=== PATIENT | female | born 1935 | race Caucasian/White ===

== ENCOUNTER 2016-07-24 17:26 | Observation (INO) | payer OTHER ==
[~2016-07-24] VITALS: Ht 165.1 cm; Wt 102.5 kg
[~2016-07-24 17:26] MED LIST: APIX5TAB PO; DILT-8 PO; GLIP5TAB8 PO; LISI-586 PO; LORA0.5T PO; METF-324 PO; PRAV80 PO; SOTA80 PO
[2016-07-24 17:28] VITALS: BP 167/71; PULSE 51; RESP 14; TEMP 98.1; O2SAT 97
[2016-07-24 17:45] VITALS: BP 161/79; PULSE 55; RESP 16
--- NOTE | 2016-07-24 18:03 | PD ---
HPI Chief Complaint: Dizziness Time Seen by Provider: 17:37 Travel History International Travel<30 days: No Contact w/Intl Traveler<30days: No Traveled to known affect area: No History of Present Illness HPI This 80-year-old female is complaining of feeling dizzy since yesterday. She has a history of atrial flutter and hypertension. She has a history of Alzheimer's dementia. Dementia manifests itself primarily with poor short-term memory She does live alone. Her daughter comes and gives her medicine twice a day and also cooks for her. She is generally ambulatory. The daughter says that today she's had hold onto things and she appears quite unsteady on her feet. She denies any chest pain or shortness of breath. She is on Eliquis. She had an ablation in 2016 for atrial flutter. He has diabetes and is on insulin as well as pills. She reportedly had a stroke in her 30s without residual. PFSH Past Medical History Hx Anticoagulant Therapy: Yes Arthritis: Yes Cancer: Yes (UTERINE) Cardiovascular Problems: Yes Cerebrovascular Accident: Yes Diabetes: Yes Patient Takes Glucophage: No Glaucoma: Yes Hypertension: Yes Medical other: Yes (chronic back pain r/t old injury) Tetanus Vaccination: Unknown Influenza Vaccination: No ?: Not Menopausal: Yes Past Surgical History Cardiac Surgery: Yes (ablation) Cholecystectomy: Yes Gynecologic Surgery: Yes (breast reduction) Hysterectomy: Yes Social History Alcohol Use: Yes (seldom) Tobacco Use: No Substance Use: No Allergies-Medications (Allergen,Severity, Reaction): Coded Allergies: No Known Allergies (Unverified , 07/24/16) Reported Meds & Prescriptions Reported Meds & Active Scripts Active Reported Trulicity Inj (Dulaglutide Inj) Unknown Strength Pen Unknown Dose SQ Q7D Lantus Solostar Pen Inj (Insulin Glargine) 300 Unit/3 Ml Pen 4 Units SQ HS Vitamin D3 (Cholecalciferol) 5,000 Unit Cap 5,000 Units PO DAILY Vitamin B12 Tr (Cyanocobalamin) 1,000 Mcg Tab 1,000 Mcg SL HS Aspirin 81 Mg Tabdr 81 Mg PO DAILY Pravastatin 40 Mg Tab 40 Mg PO HS Donepezil 10 Mg Tab 10 Mg PO DAILY Sertraline (Sertraline HCl) 100 Mg Tab 100 Mg PO DAILY Magox (Magnesium Oxide) 400 Mg Tab 400 Mg PO DAILY Lisinopril-Hctz 20-12.5 Mg Tab 1 Tab PO BID Taztia Xt (Diltiazem ER 24 HR) 240 Mg Caper 240 Mg PO DAILY Metformin (Metformin HCl) 1,000 Mg Tab 1,000 Mg PO HS With a meal Glipizide 5 Mg Tab 5 Mg PO BIDAC Take 30 minutes before a meal Synthroid (Levothyroxine Sodium) 50 Mcg Tab 50 Mcg PO DAILY Sotalol (Sotalol HCl) 80 Mg Tab 80 Mg PO BID Eliquis (Apixaban) 5 Mg Tab 5 Mg PO BID Review of Systems General / Constitutional: No: Fever, Chills Eyes: No: Diploplia, Blurred Vision HENT: Positive: Vertigo, Lightheadedness, No: Headaches Cardiovascular: No: Chest Pain or Discomfort, Palpitations, Edema Respiratory: No: Cough, Shortness of Breath Gastrointestinal: No: Vomiting, Diarrhea Genitourinary: No: Urgency, Frequency Musculoskeletal: No: Myalgias, Arthralgias Skin: No Rash, No Itching Neurologic: Positive: Weakness, Dizziness, No: Syncope, Focal Abnormalities Psychiatric: No: Anxiety Endocrine: No: Cold Intolerance Hematologic/Lymphatic: No: Easy Bruising Physical Exam Narrative GENERAL: Well-developed female SKIN: Focused skin assessment warm/dry. HEAD: Atraumatic. Normocephalic. EYES: Pupils equal and round. No scleral icterus. No injection or drainage. No nystagmus. Extraocular movements full ENT: No nasal bleeding or discharge. Mucous membranes pink and moist. NECK: Trachea midline. No JVD. CARDIOVASCULAR: Regular rate and rhythm. Rate is 50 No murmur appreciated. RESPIRATORY: No accessory muscle use. Clear to auscultation. Breath sounds equal bilaterally. GASTROINTESTINAL: Abdomen soft, non-tender, nondistended. Hepatic and splenic margins not palpable. MUSCULOSKELETAL: No obvious deformities. No clubbing. No cyanosis. No edema. NEUROLOGICAL: Awake and alert. No obvious cranial nerve deficits. Motor grossly within normal limits. Normal speech. We did stand the patient been tested her gait. She uses small steps to hold onto her walker. She normally walks with a cane PSYCHIATRIC: Appropriate mood and affect; insight and judgment normal. Data Data Last Documented VS Vital Signs Date Time Temp Pulse Resp B/P Pulse Ox O2 Delivery O2 Flow Rate FiO2 07/24/16 17:47 55 16 97 Room Air 07/24/16 17:45 161/79 07/24/16 17:28 98.1 Orders Electrocardiogram (07/24/16 18:00) Complete Blood Count With Diff (07/24/16 18:00) Troponin I (07/24/16 18:00) B-Type Natriuretic Peptide (07/24/16 18:00) Prothrombin Time / Inr (Pt) (07/24/16 18:00) Act Partial Throm Time (Ptt) (07/24/16 18:00) Urinalysis - C+S If Indicated (07/24/16 18:00) Magnesium (Mg) (07/24/16 18:00) Thyroid Stimulating Hormone (07/24/16 18:00) Ct Brain W/O Iv Contrast(Rout) (07/24/16 18:00) Urine Culture (07/24/16 17:20) Labs Laboratory Tests Test 07/24/16 07/24/16 17:20 18:05 Urine Color YELLOW Urine Turbidity CLEAR Urine pH 5.5 Urine Specific [place] 1.021 Urine Protein NEG mg/dL Urine Glucose (UA) NEG mg/dL Urine Ketones NEG mg/dL Urine Occult Blood NEG Urine Nitrite NEG Urine Bilirubin NEG Urine Leukocyte Esterase SMALL Urine WBC 9-14 /hpf Urine Squamous Epithelial 0-5 /hpf Cells Urine Bacteria MANY /hpf Urine Mucus FEW /lpf Microscopic Urinalysis Comment CULTURE INDICATED White Blood Count 13.4 TH/MM3 Red Blood Count 4.69 MIL/MM3 Hemoglobin 12.4 GM/DL Hematocrit 36.6 % Mean Corpuscular Volume 78.1 FL Mean Corpuscular Hemoglobin 26.4 PG Mean Corpuscular Hemoglobin 33.8 % Concent Red Cell Distribution Width 16.2 % Platelet Count 267 TH/MM3 Mean Platelet Volume 9.2 FL Neutrophils (%) (Auto) 77.5 % Lymphocytes (%) (Auto) 14.0 % Monocytes (%) (Auto) 5.0 % Eosinophils (%) (Auto) 2.9 % Basophils (%) (Auto) 0.6 % Neutrophils # (Auto) 10.3 TH/MM3 Lymphocytes # (Auto) 1.9 TH/MM3 Monocytes # (Auto) 0.7 TH/MM3 Eosinophils # (Auto) 0.4 TH/MM3 Basophils # (Auto) 0.1 TH/MM3 CBC Comment DIFF FINAL Differential Comment Prothrombin Time 11.0 SEC Prothromb Time International 1.0 RATIO Ratio Activated Partial 30.6 SEC Thromboplast Time Magnesium Level 1.9 MG/DL Troponin I LESS THAN 0.02 NG/ML B-Type Natriuretic Peptide 79 PG/ML Thyroid Stimulating Hormone 1.640 uIU/ML 3rd Gen [facility] Medical Decision Making Medical Screen Exam Complete: Yes Emergency Medical Condition: Yes Medical Record Reviewed: Yes Differential Diagnosis Differential includes vertigo, CVA, electrolyte imbalance, dysrhythmia Narrative Course CT of the brain is negative. Her electrolytes are normal. She has a mild UTI with 9-14 white cells. Her white count is 13,000. Her heart rate has been around 50. She is currently on sotalol 80 mg twice a day. Disposition: 01 DISCHARGE HOME Condition: Stable Alex Sommer MD Jul 24, 2016 18:03
[2016-07-24 18:22] LABS: AUTOMATED NEUTROPHIL # 10.3 TH/MM3 (1.8-7.7); BASOPHIL # 0.1 TH/MM3 (0-0.2); BASOPHIL % 0.6 % (0.0-2.0); EOSINOPHIL # 0.4 TH/MM3 (0-0.4); EOSINOPHIL % 2.9 % (0.0-4.0); HEMATOCRIT 36.6 % (35.0-46.0); LYMPHOCYTE # 1.9 TH/MM3 (1.0-4.8); MEAN CELL VOLUME 78.1 FL (80.0-100.0); MEAN CORPUSCULAR HEMOGLOBIN 26.4 PG (27.0-34.0); MEAN CORPUSCULAR HGB CONC 33.8 % (32.0-36.0); NEUT % 77.5 % (16.0-70.0); PLATELET COUNT 267 TH/MM3 (150-450); RED BLOOD COUNT 4.69 MIL/MM3 (4.00-5.30); RED CELL DISTRIBUTION WIDTH 16.2 % (11.6-17.2); WHITE BLOOD COUNT 13.4 TH/MM3 (4.0-11.0)
[2016-07-24 18:30] VITALS: BP 169/94; PULSE 56; RESP 16; O2SAT 97
[2016-07-24 18:30] LABS: MAGNESIUM 1.9 MG/DL (1.5-2.5)
[2016-07-24 18:32] LABS: APTT (PATIENT) 30.6 SEC (24.3-30.1)
[2016-07-24 18:37] LABS: BLOOD, URINE NEG (NEG); GLUCOSE,URINE NEG (NEG); KETONE, URINE NEG (NEG); NITRITE,URINE NEG (NEG); PH, URINE 5.5 (5.0-8.5)
[2016-07-24] MEDS ORDERED: LISI20TA PO (18:39)
[2016-07-24] MEDS ORDERED: METF1000 PO (18:39)
[2016-07-24] MEDS ORDERED: TAZT240C PO (18:39)
[2016-07-24] MEDS ORDERED: SOTA80TA PO (18:39)
[2016-07-24] MEDS ORDERED: GLIP5TAB8 PO (18:39)
[2016-07-24] MEDS ORDERED: LEVO.05 PO (18:39)
[2016-07-24] MEDS ORDERED: APIX5TAB PO (18:39)
[2016-07-24 18:40] LABS: HEMO FLAGS DIFF FINAL
[2016-07-24 18:43] LABS: URINE COLOR YELLOW (YELLW/STRAW)
[2016-07-24] MEDS ORDERED: VITA10004 SL (18:43)
[2016-07-24] MEDS ORDERED: SERT-129 PO (18:43)
[2016-07-24] MEDS ORDERED: PRAV40TA2 PO (18:43)
[2016-07-24] MEDS ORDERED: ASPI1TAB69 PO (18:43)
[2016-07-24] MEDS ORDERED: DONE10TA7 PO (18:43)
[2016-07-24] MEDS ORDERED: MAGO400T PO (18:43)
[2016-07-24] MEDS ORDERED: LANTINJ SQ (18:45)
[2016-07-24] MEDS ORDERED: CHOL5000 PO (18:45)
[2016-07-24 18:46] LABS: BACTERIA, URINE MANY /hpf; COMMENT (UR) CULTURE INDICATED; CULTURE IF INDICATED CULTURE INDICATED; MUCUS URINE FEW /lpf (OCC); SQUAMOUS EPITHELIAL CELL URINE 0-5 /hpf (0-5)
[2016-07-24] MEDS ORDERED: DULA10IN SQ (18:46)
--- NOTE | 2016-07-24 18:54 | RADHPO ---
EXAM DATE/TIME: 07/24/2016 18:31 [place] COMPARISON: No previous studies available for comparison. INDICATIONS : Dizziness for two days. RADIATION DOSE: 58.17 CTDIvol (mGy) MEDICAL HISTORY : Cerebrovascular disease. Hypertension. Carcinoma, uterine. Diabetes. SURGICAL HISTORY : None. ENCOUNTER: Initial ACUITY: 2 days PAIN SCALE: 0/10 LOCATION: cranial TECHNIQUE: Multiple contiguous axial images were obtained of the head. Using automated exposure control and adj ustment of the mA and/or kV according to patient size, radiation dose was kept as low as reasonably a chievable to obtain optimal diagnostic quality images. FINDINGS: CEREBRUM: The ventricles are normal for age. No evidence of midline shift, mass lesion, hemorrhage or acute in farction. No extra-axial fluid collections are seen. POSTERIOR FOSSA: The cerebellum and brainstem are intact. The 4th ventricle is midline. The cerebellopontine angle i s unremarkable. EXTRACRANIAL: The visualized portion of the orbits is intact. SKULL: The calvaria is intact. No evidence of skull fracture. CONCLUSION: Normal examination. Lamberto Gracia MD on July 24, 2016 at 18:51 Board Certified Radiologist. This report was verified electronically.
[2016-07-24] MEDS ORDERED: SODIUM CHLORIDE 0.9% FLUSH 10 ML FLUSH IV FLUSH PRN (19:30)
[2016-07-24] MEDS ORDERED: ACETAMINOPHEN 325 MG TAB PO PRN (19:30)
[2016-07-24] MEDS ORDERED: GLUCAGON 1 MG/ML VIAL OTHER PRN (19:30)
[2016-07-24] MEDS ORDERED: ONDANSETRON HCL 4 MG/2 ML VIAL IVP PRN (19:30)
[2016-07-24] MEDS ORDERED: ACETAMINOPHEN/HYDROcodone 325 MG/5 MG TAB PO PRN (19:30)
[2016-07-24] MEDS ORDERED: MORPHINE SULFATE 4 MG/ML INJ IV PRN (19:30)
[2016-07-24] MEDS ORDERED: DEXTROSE 50% IN WATER 50 ML VIAL(D50) IV PUSH PRN (19:30)
[2016-07-24] MEDS ORDERED: BISACODYL 10 MG SUPP RECTAL PRN (19:30)
[2016-07-24] MEDS: INSULIN ASPART SUPPLEMENTAL SCALE SQ SCH (20:33)
[2016-07-24] MEDS: SODIUM CHLOR 0.9% 1000 ML INJ 1,000 ML IV SCH (20:41)
[2016-07-24] MEDS: cefTRIAXone INJ 1,000 MG in SODIUM CHLORIDE 0.9% INJ 100 ML IV SCH (20:42)
[2016-07-24] MEDS: SODIUM CHLORIDE 0.9% FLUSH 10 ML FLUSH IV FLUSH SCH (20:43)
[2016-07-24 21:19] VITALS: BP 188/82; PULSE 52; RESP 20; O2SAT 95
[2016-07-24] MEDS: APIXABAN 5 MG TABLET PO SCH (21:34)
[2016-07-24] MEDS: CYANOCOBALAMIN 1,000 MCG TAB PO SCH (21:34)
[2016-07-24] MEDS: PRAVASTATIN SOD 40 MG TAB PO SCH (21:34)
[2016-07-24] MEDS: INSULIN DETEMIR 100 UNITS/ML VIAL SQ SCH (21:34)
[2016-07-24 21:39] VITALS: BP 155/79; PULSE 55
[2016-07-25] VITALS (8 sets, daily range): BP systolic 142–189; BP diastolic 71–98; PULSE 50–61; RESP 16–20; TEMP 96.9–98; O2SAT 92–96
[2016-07-25] MEDS: INSULIN ASPART SUPPLEMENTAL SCALE SQ SCH ×4 (05:40→20:47)
[2016-07-25] MEDS: glipiZIDE 5 MG TAB PO SCH ×2 (05:45→16:08)
[2016-07-25] MEDS: LEVOTHYROXINE SODIUM 50 MCG TAB PO SCH (05:45)
[2016-07-25] MEDS: SODIUM CHLOR 0.9% 1000 ML INJ 1,000 ML IV SCH ×2 (05:46→16:09)
[2016-07-25 08:05] LABS: AUTOMATED NEUTROPHIL # 9.1 TH/MM3 (1.8-7.7); BASOPHIL % 0.4 % (0.0-2.0); EOSINOPHIL # 0.4 TH/MM3 (0-0.4); EOSINOPHIL % 3.2 % (0.0-4.0); HEMATOCRIT 35.9 % (35.0-46.0); HEMO FLAGS DIFF FINAL; LYMPH % 17.6 % (9.0-44.0); LYMPHOCYTE # 2.2 TH/MM3 (1.0-4.8); MEAN CELL VOLUME 78.5 FL (80.0-100.0); MEAN CORPUSCULAR HEMOGLOBIN 25.9 PG (27.0-34.0); MONO % 4.9 % (0.0-8.0); NEUT % 73.9 % (16.0-70.0); PLATELET COUNT 235 TH/MM3 (150-450); RED BLOOD COUNT 4.57 MIL/MM3 (4.00-5.30); RED CELL DISTRIBUTION WIDTH 16.4 % (11.6-17.2); WHITE BLOOD COUNT 12.4 TH/MM3 (4.0-11.0)
[2016-07-25 08:14] LABS: CHLORIDE 105 MEQ/L (98-107); POTASSIUM 3.2 MEQ/L (3.5-5.1); SODIUM (NA) 143 MEQ/L (136-145)
[2016-07-25 08:19] LABS: ANION GAP 9 MEQ/L (5-15); BLOOD UREA NITROGEN 15 MG/DL (7-18)
[2016-07-25 08:22] LABS: ALT (GPT) 12 U/L (10-53); AST (GOT) 6 U/L (15-37); GLOMERULAR FILTRATION RATE 82 ML/MIN (>89)
[2016-07-25 08:24] LABS: TOTAL BILIRUBIN ADULT 0.3 MG/DL (0.2-1.0)
[2016-07-25 08:25] LABS: ALKALINE PHOSPHATASE 66 U/L (45-117)
[2016-07-25] MEDS: APIXABAN 5 MG TABLET PO SCH ×2 (08:30→20:39)
[2016-07-25] MEDS: ASPIRIN EC 81 MG TABEC PO SCH (08:30)
[2016-07-25] MEDS: MAGNESIUM OXIDE 400 MG TAB PO SCH (08:31)
[2016-07-25] MEDS: SERTRALINE HCL 50 MG TAB PO SCH (08:32)
[2016-07-25] MEDS: CHOLECALCIFEROL (VIT D3) 5000 UNIT CAP PO SCH (08:49)
[2016-07-25] MEDS: SODIUM CHLORIDE 0.9% FLUSH 10 ML FLUSH IV FLUSH SCH ×2 (08:50→20:47)
[2016-07-25] MEDS ORDERED: DONEPEZIL HCL 5 MG TAB PO SCH (09:00)
[2016-07-25 12:38] LABS: TRANSFERRIN IRON PROFILE 229 MG/DL (200-360)
[2016-07-25 13:29] LABS: HEMOGLOBIN A1a 1.1 %; HEMOGLOBIN A1b 1.8 %; HEMOGLOBIN Ao 84.7 %; HEMOGLOBIN LA1C 1.9 %; HEMOGLOBIN P3 5.6 %
[2016-07-25] MEDS ORDERED: POTASSIUM CHLORIDE 20 MEQ CONTROLLED RELEASE TAB PO ONE (13:30)
--- NOTE | 2016-07-25 15:00 | EKG ---
Date Performed: 07/24/2016 Time Performed: 17:52:12 PTAGE: 80 years EKG: Sinus bradycardia Left axis deviation RBBB with left anterior fascicular block Possible ext ensive infarct - age undetermined Low QRS voltages in precordial leads Compared to previous tracing, HR has slowed somewhat Abnormal ECG PREVIOUS TRACING : 10/04/2015 05.31 DOCTOR: Shelton Tellez Interpretating Date/Time 07/25/2016 14:59:43
--- NOTE | 2016-07-25 20:23 | HHI.HP ---
[facility] No Primary Care Physician Admission Diagnosis BRADYCARDIA, VERTIGO Diagnoses: Travel History International Travel<30 Days: No Contact w/Intl Traveler <30 Da: No Traveled to Known Affected Are: No History of Present Illness 80-year-old female with a history of severe Alzheimer's dementia, atrial fibrillation status post ablation, hypertension, who presents brought in by family the evening of 07/24 due to unsteadiness, accompanied with brief nausea. Patient lives alone, however her daughter visits twice daily to make sure patient is doing all right, and to make sure she takes her medications. Daughter saw patient yesterday morning, and there were no issues, however upon returning in the afternoon around 5 PM noticed that patient was very wobbly, reporting nausea as well. Daughter reports that the patient has had several episodes like this in the past 6 months, however this episode appeared worse. Daughter checked heart rate, and found to be in the 40s, which was the lowest she has seen. Patient never complained of chest pain, dysuria, fevers, chills. The patient herself is uncertain why she is here, however is very pleasant, denies any pain, denies any nausea currently. Patient's daughter notes that physical therapy can walk the patient, and she appeared to do all right. Daughter reports that patient most recently had a UTI about a year ago. Daughter reports that Levemir was changed about a month ago. Daughter denies any recent low blood sugars. Lowest recently is in the 80s. Review of Systems patient herself has no complaints currently.history as per daughter, however review of systems performed and negative except for HPI and past medical history Past Family Social History Past Medical History Atrial fibrillation status post ablation Arthritis History of uterine cancer Hypertension Chronic back pain Diabetes mellitus Past Surgical History Cardiac ablation All cystectomy Breast reduction Hysterectomy Reported Medications Reported Meds & Active Scripts Active Reported Trulicity Inj (Dulaglutide Inj) Unknown Strength Pen Unknown Dose SQ Q7D Lantus Solostar Pen Inj (Insulin Glargine) 300 Unit/3 Ml Pen 4 Units SQ HS Vitamin D3 (Cholecalciferol) 5,000 Unit Cap 5,000 Units PO DAILY Vitamin B12 Tr (Cyanocobalamin) 1,000 Mcg Tab 1,000 Mcg SL HS Aspirin 81 Mg Tabdr 81 Mg PO DAILY Pravastatin 40 Mg Tab 40 Mg PO HS Donepezil 10 Mg Tab 10 Mg PO DAILY Sertraline (Sertraline HCl) 100 Mg Tab 100 Mg PO DAILY Magox (Magnesium Oxide) 400 Mg Tab 400 Mg PO DAILY Lisinopril-Hctz 20-12.5 Mg Tab 1 Tab PO BID Taztia Xt (Diltiazem ER 24 HR) 240 Mg Caper 240 Mg PO DAILY Metformin (Metformin HCl) 1,000 Mg Tab 1,000 Mg PO HS With a meal Glipizide 5 Mg Tab 5 Mg PO BIDAC Take 30 minutes before a meal Synthroid (Levothyroxine Sodium) 50 Mcg Tab 50 Mcg PO DAILY Sotalol (Sotalol HCl) 80 Mg Tab 80 Mg PO BID Eliquis (Apixaban) 5 Mg Tab 5 Mg PO BID Allergies: Coded Allergies: No Known Allergies (Unverified , 07/24/16) Family History Family history currently noncontributory. Social History Nonsmoker. Very rare drinker. No illicit drugs. Patient lives by herself. Daughter visits twice daily to make sure patient is taking medications and doing all right. Physical Exam Vital Signs Vital Signs Date Time Temp Pulse Resp B/P Pulse Ox O2 Delivery O2 Flow Rate FiO2 07/25/16 16:00 98.0 58 20 189/98 92 07/25/16 12:00 97.1 59 20 171/80 94 07/25/16 08:00 97.3 51 20 152/79 94 07/25/16 04:00 97.8 50 18 142/71 93 07/25/16 01:00 50 07/25/16 00:40 52 18 155/72 98 07/24/16 21:39 55 155/79 07/24/16 21:19 52 20 188/82 95 Room Air Physical Exam GENERAL: This is a well-nourished, well-developed patient, in no apparent distress.she is disoriented but alert and pleasant. SKIN: No rashes, ecchymoses or lesions. Cool and dry. HEAD: Atraumatic. Normocephalic. No temporal or scalp tenderness. EYES: Pupils equal round and reactive. Extraocular motions intact. No scleral icterus. No injection or drainage. ENT: Nose without bleeding, purulent drainage or septal hematoma. Throat without erythema, tonsillar hypertrophy or exudate. Uvula midline. Airway patent. NECK: Trachea midline. No JVD or lymphadenopathy. Supple, nontender, no meningeal signs. CARDIOVASCULAR: Regular rate and rhythm without murmurs, gallops, or rubs. RESPIRATORY: Clear to auscultation. Breath sounds equal bilaterally. No wheezes , rales, or rhonchi. GASTROINTESTINAL: Abdomen soft, non-tender, nondistended. No hepato-splenomegaly , or palpable masses. No guarding. MUSCULOSKELETAL: Extremities without clubbing, cyanosis, or edema. No joint tenderness, effusion, or edema noted. No calf tenderness. Negative Homans sign bilaterally. NEUROLOGICAL: Awake and alert. Cranial nerves II through XII intact. Motor and sensory grossly within normal limits. Five out of 5 muscle strength in all muscle groups. Normal speech. Laboratory Laboratory Tests Test 07/25/16 06:35 White Blood Count 12.4 Red Blood Count 4.57 Hemoglobin 11.9 Hematocrit 35.9 Mean Corpuscular Volume 78.5 Mean Corpuscular Hemoglobin 25.9 Mean Corpuscular Hemoglobin 33.0 Concent Red Cell Distribution Width 16.4 Platelet Count 235 Mean Platelet Volume 9.2 Neutrophils (%) (Auto) 73.9 Lymphocytes (%) (Auto) 17.6 Monocytes (%) (Auto) 4.9 Eosinophils (%) (Auto) 3.2 Basophils (%) (Auto) 0.4 Neutrophils # (Auto) 9.1 Lymphocytes # (Auto) 2.2 Monocytes # (Auto) 0.6 Eosinophils # (Auto) 0.4 Basophils # (Auto) 0.0 CBC Comment DIFF FINAL Differential Comment Sodium Level 143 Potassium Level 3.2 Chloride Level 105 Carbon Dioxide Level 29.0 Anion Gap 9 Blood Urea Nitrogen 15 Creatinine 0.69 Estimat Glomerular Filtration 82 Rate Random Glucose 89 Hemoglobin A1c 5.8 Calcium Level 8.8 Iron Level 36 Total Iron Binding Capacity 321 Percent Iron Saturation 11.2 Ferritin 76 Total Bilirubin 0.3 Aspartate Amino Transf 6 (AST/SGOT) Alanine Aminotransferase 12 (ALT/SGPT) Alkaline Phosphatase 66 Total Protein 6.1 Albumin 2.5 Vitamin B12 Level 859 Date/Time Procedure Status Source Growth 07/24/16 17:20 Urine Culture - Preliminary Resulted Urine Clean Catch Gram Negative Pradeep Result Diagram: 07/25/16 0635 07/25/16 0635 Imaging Last Impressions Head CT 07/24/16 1800 Signed Impressions: Service Date/Time: Sunday, July 24, 2016 18:31 - CONCLUSION: Normal examination. Lamberto Gracia MD Assessment and Plan Assessment and Plan //Symptomatic bradycardia //Atrial fibrillation. -With reported history of stroke in her 30s. -Patient on sotalol, as well as diltiazem. We'll hold these medications and monitor Cardiology consultation. Holding donepezil as well. Hopefully we can restart this and just decreased dose of cardiac meds. -Continue apixaban //Unsteady gait -Head CT negative. Possibly secondary to bradycardia as this is reportedly new. Gait is improved on physical therapy evaluation. Appreciate physical therapy assistance. -Could Also be associated with hypoglycemia. A1c is only 5.8. This is //Diabetes mellitus A1c appears to be low. 5.8. This level of control is unnecessary, and rather dangerous. We will have her on sliding scale and diabetic diet here. -Patient is on every 7 days long-acting insulin. -Recommend backing off on insulin treatment at home. //Possible UTI //Leukocytosis. 914 white blood cells in urinalysis. No dysuria. -Due to presentation, we'll continue to treat with antibiotics. //Severe Alzheimer's dementia Reorientation as necessary //Hypokalemia. Mild. Replaced. Follow. //Hypertension. Vasotec as necessary. //Hypothyroidism. TSH acceptable. Continue home Synthroid. //Prophylaxis. Patient is on anticoagulation for atrial fibrillation. Code Status daughter who is POA indicates DO NOT RESUSCITATE. Patient herself agrees. Discussed Condition With patient, nurse, daughter at bedside. Roosevelt Torres MD Jul 25, 2016 20:23
[2016-07-25] MEDS ORDERED: ENALAPRILAT 1.25 MG/ML VIAL IV PUSH PRN (20:30)
[2016-07-25] MEDS: CYANOCOBALAMIN 1,000 MCG TAB PO SCH (20:39)
[2016-07-25] MEDS: PRAVASTATIN SOD 40 MG TAB PO SCH (20:39)
[2016-07-25] MEDS: INSULIN DETEMIR 100 UNITS/ML VIAL SQ SCH (20:40)
[2016-07-25] MEDS: cefTRIAXone INJ 1,000 MG in SODIUM CHLORIDE 0.9% INJ 100 ML IV SCH (20:40)
[2016-07-26 00:12] VITALS: BP 189/77; PULSE 62; RESP 16; TEMP 98.8; O2SAT 91
[2016-07-26] MEDS: SODIUM CHLOR 0.9% 1000 ML INJ 1,000 ML IV SCH ×2 (02:07→12:37)
--- NOTE | 2016-07-26 04:28 | MB ---
cc: SAM JETT DATE OF : 1935 DATE OF CONSULTATION: July 25, 2016 REASON FOR CONSULTATION Symptomatic bradycardia. HISTORY OF PRESENT ILLNESS 80-year-old female with a past medical history significant for atrial flutter, hypertension, Alzheimer's dementia, status post atrial flutter ablation who was brought into the emergency department by daughter, due to dizziness and unsteadiness. Unfortunately the patient has no recollection of the events that brought her to the emergency department and the daughter is not at bedside, so most of the history is taken from the chart. Currently she has no complaint. She denies chest pain, shortness of breath, palpitations, syncope, PND, leg edema. manager speech shows sinus bradycardia. Cardiology was consulted for question of ? symptomatic bradycardia management. REVIEW OF SYSTEMS Negative except for what is mentioned in the HPI. PAST MEDICAL HISTORY: 1. Alzheimer's dementia. 2. Hypertension. 3. Atrial flutter, status post ablation. 4. Chronic anticoagulation. 5. Diabetes. 6. Hypothyroidism. 7. Hypertension. 8. Hyperlipidemia. FAMILY HISTORY Noncontributory. ALLERGIES NO KNOWN DRUG ALLERGIES. CARDIAC HOME MEDICATIONS 1. Eliquis 5 mg p.o. b.i.d. 2. Aspirin 81 mg p.o. daily. 3. Diltiazem 240 milligrams p.o. daily. 4. Aricept 10 milligrams p.o. daily 5. Lisinopril/hydrochlorothiazide 20, 12.5 mg p.o. daily 6. Pravastatin 40 mg p.o. daily 7. Sotalol 80 milligrams p.o. b.i.d. PHYSICAL EXAMINATION VITAL SIGNS: Temperature 98. Heart rate 58, respiratory rate 20, blood pressure 189/98, O2 sat 92% on room air. General: Awake, alert in no acute distress. Neck: No JVD, no carotid bruits. Heart: Regular rate and rhythm. No murmurs, rubs or gallops. Lungs: Clear to auscultation bilaterally. Abdomen: Positive bowel sounds, soft, nontender, nondistended. Extremities: No cyanosis or edema, pulses throughout. DATA CBC: hemoglobin 11, hematocrit 35, WBC trending down from 13.4 to 12.4, platelet count 235 INR 1. Chemistries: sodium 143, potassium 3.2, creatinine 0.69, troponin less than 0.02. TSH 1.6. Urinalysis unremarkable. Head CT unremarkable. EKG: sinus bradycardia. ASSESSMENT AND PLAN: 80 year-old female with hx of dementia admitted with dizziness, found to have sinus bradycardia, being consulted to cardiology for evaluation of bradycardia. Unfortunately given the patient's dementia, we were unable to get a meaningful history from the patient. Her AV nohelia agents have been discontinued. She continues on sinus bradycardia, however, asymptomatic. On telemetry there are no pauses. Recommendations: 1. Hold AV blocking agents 2. Continue telemetry monitoring. 3. Hold Aricept which it has been described to cause also bradycardia and syncope. 4. Continue cycling had cardiac enzymes x 3 5. Encourage ambulation. If her workup is negative she can be discharged home with 24hr Holter monitor and follow up with Dr. Cordoba. Thank you for the opportunity to participate in the care of this patient. We will be available on a p.r.n. basis for any other questions or concerns. Sam Jett MD [facility] [employer]ARY[facility] /7:41 PM /3:45 AM EREN
[2016-07-26] MEDS: glipiZIDE 5 MG TAB PO SCH (05:42)
[2016-07-26] MEDS: INSULIN ASPART SUPPLEMENTAL SCALE SQ SCH ×2 (05:42→11:00)
[2016-07-26] MEDS: LEVOTHYROXINE SODIUM 50 MCG TAB PO SCH (05:42)
[2016-07-26 08:00] VITALS: BP 193/81; PULSE 57; RESP 20; TEMP 96.7; O2SAT 93
[2016-07-26 08:03] LABS: AUTOMATED NEUTROPHIL # 10.4 TH/MM3 (1.8-7.7); BASOPHIL % 0.3 % (0.0-2.0); EOSINOPHIL # 0.6 TH/MM3 (0-0.4); EOSINOPHIL % 4.2 % (0.0-4.0); HEMATOCRIT 37.5 % (35.0-46.0); HEMO FLAGS DIFF FINAL; LYMPH % 12.7 % (9.0-44.0); LYMPHOCYTE # 1.7 TH/MM3 (1.0-4.8); MEAN CELL VOLUME 78.4 FL (80.0-100.0); MEAN CORPUSCULAR HEMOGLOBIN 25.8 PG (27.0-34.0); MEAN CORPUSCULAR HGB CONC 32.8 % (32.0-36.0); MONO % 5.1 % (0.0-8.0); NEUT % 77.7 % (16.0-70.0); PLATELET COUNT 245 TH/MM3 (150-450); RED BLOOD COUNT 4.78 MIL/MM3 (4.00-5.30); RED CELL DISTRIBUTION WIDTH 16.6 % (11.6-17.2); WHITE BLOOD COUNT 13.4 TH/MM3 (4.0-11.0)
[2016-07-26] MEDS: MAGNESIUM OXIDE 400 MG TAB PO SCH (08:11)
[2016-07-26] MEDS: ASPIRIN EC 81 MG TABEC PO SCH (08:11)
[2016-07-26] MEDS: CHOLECALCIFEROL (VIT D3) 5000 UNIT CAP PO SCH (08:12)
[2016-07-26] MEDS: SODIUM CHLORIDE 0.9% FLUSH 10 ML FLUSH IV FLUSH SCH (08:13)
[2016-07-26] MEDS: APIXABAN 5 MG TABLET PO SCH (08:13)
[2016-07-26] MEDS: SERTRALINE HCL 50 MG TAB PO SCH (08:13)
[2016-07-26 08:14] LABS: BICARBONATE 29.2 MEQ/L (21.0-32.0)
[2016-07-26] MEDS ORDERED: LISINOPRIL 20 MG TAB PO SCH (09:00)
[2016-07-26] MEDS ORDERED: NON-FORMULARY DRUG (Lisinopril-Hctz 1 TAB) PO SCH (09:00)
[2016-07-26] MEDS ORDERED: HYDROCHLOROTHIAZIDE 25 MG TAB PO SCH (09:00)
[2016-07-26 11:54] VITALS: BP 155/74; PULSE 52; RESP 20; TEMP 98.1; O2SAT 94
[2016-07-26] MEDS ORDERED: CIPR250T52 PO (14:34)
--- NOTE | 2016-07-27 17:48 | HHI.PR ---
Subjective Remarks Date of service 07/26/16. Patient seen around 10 AM on 07/26/16. Says she is feeling well. Denies any pain. Denies any dizziness. Daughter at bedside. Says she is doing well. -We discussed discontinuing Lantus due to over control of diabetes. Daughter will check blood glucose twice daily. If glucose is over 200, daughter will restart Lantus and call primary M.D.. If over 300, she will seek medical attention. Objective I/O 07/26/16 07/26/16 07/26/16 07/27/16 07/27/16 07/27/16 07:00 15:00 23:00 07:00 15:00 23:00 Intake Total 864 ml 330 ml Balance 864 ml 330 ml Intake Oral 330 ml IV Total 864 ml # Voids 3 Result Diagram: 07/26/16 0735 07/26/16 0735 Imaging Last Impressions Head CT 07/24/16 1800 Signed Impressions: Service Date/Time: Sunday, July 24, 2016 18:31 - CONCLUSION: Normal examination. Lamberto Gracia MD Objective Remarks GENERAL: patient sitting up in bed. Appears comfortable. She is disoriented as before. Pleasant. SKIN: Warm and dry. HEAD: Normocephalic. EYES: No scleral icterus. No injection or drainage. NECK: Supple, trachea midline. No JVD. CARDIOVASCULAR: Regular rate and rhythm without murmurs, gallops, or rubs. RESPIRATORY: Breath sounds equal bilaterally. No accessory muscle use. GASTROINTESTINAL: Abdomen soft, non-tender, nondistended. MUSCULOSKELETAL: No cyanosis, or edema. BACK: Nontender without obvious deformity. No CVA tenderness. A/P Assessment and Plan //Symptomatic bradycardia //Atrial fibrillation. -With reported history of stroke in her 30s. -Patient on sotalol, as well as diltiazem. We'll hold these medications and monitor Cardiology consultation. Holding donepezil as well. Hopefully we can restart this and just decreased dose of cardiac meds. -Continue apixaban -We'll discharge home off of AV nohelia blocking agents. Patient has had ablation already, so AV nohelia blocking agents hopefully should not be necessary. Also hold donepezil area appreciate cardiology assistance. //Unsteady gait -Head CT negative. Possibly secondary to bradycardia as this is reportedly new. Gait is improved on physical therapy evaluation. Appreciate physical therapy assistance. -Could Also be associated with hypoglycemia. A1c is only 5.8. -Unsteady gait improved with discontinuation of AV nohelia blocking agents. -Appreciate physical therapy assistance. //Diabetes mellitus A1c appears to be low. 5.8. This level of control is unnecessary, and rather dangerous. We will have her on sliding scale and diabetic diet here. -Patient is on every 7 days long-acting insulin. -Recommend backing off on insulin treatment at home. //Possible UTI //Leukocytosis. 914 white blood cells in urinalysis. No dysuria. -Due to presentation, we'll continue to treat with antibiotics. -Discharge home with ciprofloxacin to complete treatment course. //Severe Alzheimer's dementia Reorientation as necessary. Unfortunately we will have to hold donepezil for now. //Hypokalemia. Mild. Replaced. Follow. //Hypertension. Vasotec as necessary. //Hypothyroidism. TSH acceptable. Continue home Synthroid. //Prophylaxis. Patient is on anticoagulation for atrial fibrillation. Code Status daughter who is POA indicates DO NOT RESUSCITATE. Patient herself agrees. Discharge Planning Discharge home in good condition. Diabetic diet. Activity as tolerated. No procedures performed. Please see discharge medication reconciliation for medication list. Follow-up with primary care and cardiology. Roosevelt Torres MD Jul 27, 2016 17:47
--- NOTE | 2016-07-31 08:42 | HM ---
Date Performed: 07/28/2016 Time Performed: 15:01:00 HOOKUP DATE: 07/28/16 03:01:00 PM Tue ANALYSIS START TIME: 07/28/2016 3:06:00 PM ANALYSIS END TIME: 07/29/2016 3:10:00 PM PATIENT AGE: 80 PATIENT HEIGHT PATIENT WEIGHT DRUG LIST PATIENT DIAGNOSIS: bradycardia vertigo TEST NARRATIVE: The patient's average heart rate was 67 BPM. Heart rates greater than 120 B PM were noted 2% of the time. Heart rates less than 50 BPM were noted 2% of the time. No pauses exceeding 2.0 seconds were noted. 9 ventricular ectopics, which represented < 1% of the total uche t count, were noted. The highest ventricular ectopic frequency occurred from 07:00 AM to 08:00 AM We d. During this time 2 VE(s) occurred. Ventricular ectopics were observed as 9 isolated beat(s) only . No couplets or runs were noted. 569 supraventricular ectopics, which represented 1% of the tot al beat count, were noted. The highest supraventricular ectopic frequency occurred from 02:00 PM to 03:00 PM Wed. During this time 70 SVE(s) occurred. No episodes of ST depression (defined as -1.0 mm or more) were noted in channel 1. No episodes of ST depression (defined as -1.0 mm or more) were noted in channel 2. In channel 3, a single episode of ST depression (defined as -1.0 mm or more) oc curred at 09:11:21 AM Wed with a maximum depression of -1.8 mm. NO DIARY MAINTAINED TEST INTERPRETATION: The patient has a history of Bradycardia and Vertigo. The patient was monit ored for 24 hours. The average heart rate was 67 with a minimum heart rate of 44 beats per minute and a maximum heart rate of 102 beats per minute. Several short atrial runs were seen. CONCLUSION: The H olter monitor is notable for what appears to be sinus tachycardia, up to about 150 beats per minute. Given this patients age, hypo tachycardia does seem unusual and P-waves do appear to be present. Furt her investigation into an atrial disrhythmia may be warranted. Signed by : Casey Cordoba
== END 2016-07-26 15:55 | disposition home or self-care (01) ==
LOC: PHED 17:26 → PHEDA 19:23 → PHEDH 22:40 → PH3B 07-25 00:28
PROVIDERS: ADMIT Internal Medicine; ATTEND Internal Medicine
DX: R00.1 Bradycardia, unspecified (principal); I48.91 Unspecified atrial fibrillation; E11.9 Type 2 diabetes mellitus without complications; R26.81 Unsteadiness on feet; D72.829 Elevated white blood cell count, unspecified; E87.6 Hypokalemia; I10 Essential (primary) hypertension; E03.9 Hypothyroidism, unspecified; B96.20 Unspecified Escherichia coli [E. coli] as the cause of diseases classified elsewhere; Z66 Do not resuscitate; G30.9 Alzheimer's disease, unspecified; F02.80 Dementia in other diseases classified elsewhere, unspecified severity, without behavioral disturbance, psychotic disturbance, mood disturbance, and anxiety; M19.90 Unspecified osteoarthritis, unspecified site; M54.9 Dorsalgia, unspecified; G89.29 Other chronic pain; Z79.82 Long term (current) use of aspirin; Z85.42 Personal history of malignant neoplasm of other parts of uterus; Z79.01 Long term (current) use of anticoagulants; Z79.4 Long term (current) use of insulin; Z86.73 Personal history of transient ischemic attack (TIA), and cerebral infarction without residual deficits
CPT/HCPCS: 70450; 80048; 80053; 81001; 82607; 82728; 82948; 83036; 83540; 83550; 83735; 83880; 84443; 84484; 85025; 85610; 85730; 87077; 87086; 87186; 93005; 93225; 93226; 97163; 99285; G0378; G8987; J0696; J1815; J7030

== ENCOUNTER 2016-07-27 17:39 | Observation (INO) | payer OTHER ==
[~2016-07-27] VITALS: Ht 165.1 cm; Wt 99.8 kg
[~2016-07-27 17:39] MED LIST changes: +ASPI1TAB69 PO; +CHOL5000 PO; +CIPR250T52 PO; -DILT-8 PO; +DULA10IN SQ; +LEVO.05 PO; -LISI-586 PO; +LISI20TA PO; -LORA0.5T PO; +MAGO400T PO; -METF-324 PO; +METF1000 PO; +PRAV40TA2 PO; -PRAV80 PO; +SERT-129 PO; -SOTA80 PO; +VITA10004 SL
[2016-07-27 17:42] VITALS: BP 220/92; PULSE 65; RESP 17; TEMP 97.7; O2SAT 96
[2016-07-27 17:43] VITALS: BP 237/97
--- NOTE | 2016-07-27 18:48 | PD ---
HPI Chief Complaint: Dizziness Time Seen by Provider: 18:48 Travel History International Travel<30 days: No Contact w/Intl Traveler<30days: No Traveled to known affect area: No History of Present Illness HPI 80 year old female with PMH of A flutter, symptomatic bradycardia, DM, dementia , hypertension, on ELIQUIS presents to the ED for evaluation of general fatigue and a near syncopal episode. The daughter is at bedside and provides the history. She states that her mother has been in bed all day. She states that she got up this evening, went to the bathroom, came back to the table when she began to complain of weakness. The patient's daughter states that the patient closed her eyes and slumped over very briefly. The daughter was able to hold her, she did not hit her head or lose consciousness. Patient's daughter states that the patient was just discharged from the hospital yesterday. She states that just before this episode she measured her mothers blood sugar at 90. He endorses compliance with the Cipro prescribed at discharge. PFSH Past Medical History Hx Anticoagulant Therapy: Yes (ELIQUIS) Arthritis: Yes Blood Disorders: No Heart Rhythm Problems: Yes Cancer: Yes (UTERINE) Cardiovascular Problems: Yes (BRADYCARDIA, ABLASION 10/02) High Cholesterol: No Chemotherapy: No Chest Pain: No Congestive Heart Failure: No Cerebrovascular Accident: Yes Diabetes: Yes Endocrine: Yes Glaucoma: Yes Genitourinary: No Hypertension: Yes Musculoskeletal: Yes (low back pain) Neurologic: No Psychiatric: No Reproductive: No Respiratory: No Radiation Therapy: No Thyroid Disease: Yes ?: Not Menopausal: Yes Past Surgical History Cardiac Surgery: Yes (ablation) Cholecystectomy: Yes Gynecologic Surgery: Yes (breast reduction) Hysterectomy: Yes Social History Alcohol Use: Yes (seldom) Tobacco Use: No Substance Use: No Allergies-Medications (Allergen,Severity, Reaction): Coded Allergies: No Known Allergies (Unverified , 07/27/16) Reported Meds & Prescriptions Reported Meds & Active Scripts Active Cipro (Ciprofloxacin HCl) 250 Mg Tab 250 Mg PO BID 8 Days Reported Trulicity Inj (Dulaglutide Inj) Unknown Strength Pen Unknown Dose SQ Q7D Vitamin D3 (Cholecalciferol) 5,000 Unit Cap 5,000 Units PO DAILY Vitamin B12 Tr (Cyanocobalamin) 1,000 Mcg Tab 1,000 Mcg SL HS Aspirin 81 Mg Tabdr 81 Mg PO DAILY Pravastatin 40 Mg Tab 40 Mg PO HS Sertraline (Sertraline HCl) 100 Mg Tab 100 Mg PO DAILY Magox (Magnesium Oxide) 400 Mg Tab 400 Mg PO DAILY Lisinopril-Hctz 20-12.5 Mg Tab 1 Tab PO BID Metformin (Metformin HCl) 1,000 Mg Tab 1,000 Mg PO HS With a meal Glipizide 5 Mg Tab 5 Mg PO BIDAC Take 30 minutes before a meal Synthroid (Levothyroxine Sodium) 50 Mcg Tab 50 Mcg PO DAILY Eliquis (Apixaban) 5 Mg Tab 5 Mg PO BID Review of Systems Except as stated in HPI: all other systems reviewed are Neg Physical Exam Narrative GENERAL: Well-nourished, well-developed pleasantly demented elderly female in no acute distress. SKIN: Focused skin assessment warm/dry. HEAD: Normocephalic. EYES: No scleral icterus. No injection or drainage. NECK: Supple, trachea midline. No JVD or lymphadenopathy. CARDIOVASCULAR: Regular rate and rhythm without murmurs, gallops, or rubs. 2+ DP and radial pulses bilaterally. RESPIRATORY: Breath sounds clear and equal bilaterally. No accessory muscle use. GASTROINTESTINAL: Abdomen soft, non-tender, nondistended. Active bowel sounds. MUSCULOSKELETAL: No cyanosis, or edema. BACK: Nontender without obvious deformity. No CVA tenderness. Data Data Last Documented VS Vital Signs Date Time Temp Pulse Resp B/P Pulse Ox O2 Delivery O2 Flow Rate FiO2 07/27/16 19:25 95 Room Air 07/27/16 18:07 07/27/16 17:42 97.7 65 17 Orders Electrocardiogram (07/27/16 18:58) Complete Blood Count With Diff (07/27/16 18:58) Comprehensive Metabolic Panel (07/27/16 18:58) B-Type Natriuretic Peptide (07/27/16 18:58) Ckmb (Isoenzyme) Profile (07/27/16 18:58) Troponin I (07/27/16 18:58) Act Partial Throm Time (Ptt) (07/27/16 18:58) Prothrombin Time / Inr (Pt) (07/27/16 18:58) Urinalysis - C+S If Indicated (07/27/16 18:58) Chest, Single Ap (07/27/16 18:58) Ecg Monitoring (07/27/16 18:58) Iv Access Insert/Monitor (07/27/16 18:58) Oximetry (07/27/16 18:58) Sodium Chloride 0.9% Flush (Ns Flush) (07/27/16 19:00) Urine Culture (07/27/16 19:50) Admit Order (Ed Use Only) (07/27/16 22:41) Place In Observation (07/27/16 ) Vital Signs (Adult) Q4H (07/27/16 22:44) Activity Oob With Assistance (07/27/16 22:44) Buyer Grain / Telemetry .CONTINUOUS (07/27/16 22:44) Diet Heart Healthy (07/28/16 Breakfast) Sodium Chloride 0.9% Flush (Ns Flush) (07/27/16 22:45) Sodium Chloride 0.9% Flush (Ns Flush) (07/28/16 09:00) Pt Request For Service (07/27/16 22:44) Case Management Consult (07/27/16 22:44) Naloxone Inj (Narcan Inj) (07/27/16 22:45) Apixaban (Eliquis) (07/28/16 09:00) Aspirin Ec (Ecotrin Ec) (07/28/16 09:00) Levothyroxine (Synthroid) (07/28/16 09:00) Magnesium Oxide (Mag-Ox) (07/28/16 09:00) Pravastatin (Pravachol) (07/28/16 21:00) Sertraline (Zoloft) (07/28/16 09:00) (Nf) Lisinopril-Hctz (07/28/16 09:00) Labs Laboratory Tests Test 07/27/16 07/27/16 19:40 19:50 White Blood Count 14.2 TH/MM3 Red Blood Count 4.80 MIL/MM3 Hemoglobin 12.6 GM/DL Hematocrit 37.0 % Mean Corpuscular Volume 77.1 FL Mean Corpuscular Hemoglobin 26.3 PG Mean Corpuscular Hemoglobin 34.2 % Concent Red Cell Distribution Width 16.9 % Platelet Count 244 TH/MM3 Mean Platelet Volume 9.2 FL Neutrophils (%) (Auto) 73.0 % Lymphocytes (%) (Auto) 16.1 % Monocytes (%) (Auto) 6.5 % Eosinophils (%) (Auto) 3.7 % Basophils (%) (Auto) 0.7 % Neutrophils # (Auto) 10.4 TH/MM3 Lymphocytes # (Auto) 2.3 TH/MM3 Monocytes # (Auto) 0.9 TH/MM3 Eosinophils # (Auto) 0.5 TH/MM3 Basophils # (Auto) 0.1 TH/MM3 CBC Comment DIFF FINAL Differential Comment Prothrombin Time 11.7 SEC Prothromb Time International 1.1 RATIO Ratio Activated Partial 32.3 SEC Thromboplast Time Sodium Level 134 MEQ/L Potassium Level 4.1 MEQ/L Chloride Level 100 MEQ/L Carbon Dioxide Level 28.1 MEQ/L Anion Gap 6 MEQ/L Blood Urea Nitrogen 12 MG/DL Creatinine 0.72 MG/DL Estimat Glomerular Filtration 78 ML/MIN Rate Random Glucose 80 MG/DL Calcium Level 9.7 MG/DL Total Bilirubin 0.4 MG/DL Aspartate Amino Transf 14 U/L (AST/SGOT) Alanine Aminotransferase 14 U/L (ALT/SGPT) Alkaline Phosphatase 74 U/L Total Creatine Kinase 43 U/L Troponin I LESS THAN 0.02 NG/ML B-Type Natriuretic Peptide 50 PG/ML Total Protein 6.7 GM/DL Albumin 2.8 GM/DL Urine Color YELLOW Urine Turbidity CLEAR Urine pH 6.0 Urine Specific [place] 1.011 Urine Protein NEG mg/dL Urine Glucose (UA) NEG mg/dL Urine Ketones NEG mg/dL Urine Occult Blood NEG Urine Nitrite NEG Urine Bilirubin NEG Urine Urobilinogen LESS THAN 2.0 MG/DL Urine Leukocyte Esterase NEG Urine RBC LESS THAN 1 /hpf Urine WBC LESS THAN 1 /hpf Urine Squamous Epithelial 1 /hpf Cells Urine Bacteria RARE /hpf Urine Mucus FEW /lpf Microscopic Urinalysis Comment CATH-CULTURE IND MDM Medical Decision Making Medical Screen Exam Complete: Yes Emergency Medical Condition: Yes Differential Diagnosis symptomatic bradycardia versus hypoglycemia versus deconditioning versus UTI versus other Narrative Course 80 year old female with PMH of A flutter, symptomatic bradycardia, DM, dementia , hypertension, on ELIQUIS presents to the ED for evaluation of general fatigue and a near syncopal episode. The daughter is at bedside and provides the history. She states that her mother has been in bed all day. She states that she got up this evening, went to the bathroom, came back to the table when she began to complain of weakness. The patient's daughter states that the patient closed her eyes and slumped over very briefly. The daughter was able to hold her, she did not hit her head or lose consciousness. Blood sugar 90 just before this episode, endorses compliance with the Cipro prescribed at discharge. Vitals reviewed. Patient is bradycardic and hypertensive on presentation. Physical exam reveals a pleasantly demented elderly white female in no acute distress. Chest is clear to auscultation bilaterally. Abdomen soft , nontender. Equal pulses in the extremities. No edema of the lower extremities. No CVA tenderness. IV was established. Patient was placed on continuous monitoring. Heart rate currently 56. CBC: WBC 14.2, 73% neutrophils. Hemoglobin 12.6. INR 1.1. CMP: no concerning abnormalities BNP: 50 CXR: minimal parenchymal changes left base, mild compensated cardiomyopathy EKG: Rate 58, sinus rhythm. CA interval 162, QRS 122, QTc 460. Normal axis. RBBB. No acute ST changes. Reviewed by Dr. Mendez. Similar to previous EKG earlier this week. UA: Rare bacteria, culture pending. Review of the record reveals patient was administered to the hospital 07/24 and discharged 07/26. At that time the patient was instructed to hold all AV nohelia blocking agents, donepezil and Lantus. The patient's daughter endorses compliance with those orders. I discussed the case with Dr. Mendez who recommends obs admit, PT evaluation and possible rehab placement. I spoke with the patients daughter who is agreeable to this plan. Call placed to Dr. Mcdermott who agrees to accept the patient to the medical service. Please see medicine notes for disposition. Diagnosis Primary Impression: Symptomatic bradycardia Additional Impression: Near syncope Irasema August Jul 27, 2016 18:48
[2016-07-27] MEDS ORDERED: SODIUM CHLORIDE 0.9% FLUSH 10 ML FLUSH IVF PRN (19:00)
[2016-07-27 19:25] VITALS: O2SAT 95
--- NOTE | 2016-07-27 19:42 | RADRPT ---
EXAM DATE/TIME: 07/27/2016 19:03 [facility] COMPARISON: No previous studies available for comparison. INDICATIONS : Short of breath after syncopal episode. MEDICAL HISTORY : Cerebrovascular disease. Hypertension. Carcinoma, uterine. Diabetes. SURGICAL HISTORY : None. ENCOUNTER: Initial ACUITY: 4 - 6 days PAIN SCORE: 0/10 LOCATION: Bilateral chest FINDINGS: Minimal parenchymal changes and peribronchial thickening are present in the left base. There is mild compensated cardiomegaly without failure. The portion of the bony skeleton visualized is unremarkabl e. CONCLUSION: Minimal parenchymal changes left base, mild compensated cardiomegaly. Darvin Dee MD FACR on July 27, 2016 at 19:39 Board Certified Radiologist. This report was verified electronically.
[2016-07-27 19:45] VITALS: BP 194/88; PULSE 48; RESP 20; O2SAT 96
[2016-07-27 20:06] LABS: AUTOMATED NEUTROPHIL # 10.4 TH/MM3 (1.8-7.7); BASOPHIL # 0.1 TH/MM3 (0-0.2); BASOPHIL % 0.7 % (0.0-2.0); EOSINOPHIL # 0.5 TH/MM3 (0-0.4); EOSINOPHIL % 3.7 % (0.0-4.0); HEMO FLAGS DIFF FINAL; LYMPH % 16.1 % (9.0-44.0); LYMPHOCYTE # 2.3 TH/MM3 (1.0-4.8); MEAN CELL VOLUME 77.1 FL (80.0-100.0); MEAN CORPUSCULAR HEMOGLOBIN 26.3 PG (27.0-34.0); MEAN CORPUSCULAR HGB CONC 34.2 % (32.0-36.0); MONO % 6.5 % (0.0-8.0); PLATELET COUNT 244 TH/MM3 (150-450); RED CELL DISTRIBUTION WIDTH 16.9 % (11.6-17.2); WHITE BLOOD COUNT 14.2 TH/MM3 (4.0-11.0)
[2016-07-27 20:14] LABS: BACTERIA, URINE RARE /hpf; BLOOD, URINE NEG (NEG); GLUCOSE,URINE NEG (NEG); KETONE, URINE NEG (NEG); MUCUS URINE FEW /lpf (OCC); NITRITE,URINE NEG (NEG); SQUAMOUS EPITHELIAL CELL URINE 1 /hpf (0-5); URINE COLOR YELLOW (YELLW/STRAW)
[2016-07-27 20:17] LABS: COMMENT (UR) CATH-CULTURE IND; CULTURE IF INDICATED CATH CULTURE IND
[2016-07-27 20:17] LABS: APTT (PATIENT) 32.3 SEC (24.3-30.1); INTERNATIONAL NORMALIZED RATIO 1.1 RATIO; PROTHROMBIN TIME - PATIENT 11.7 SEC (9.8-11.6)
[2016-07-27 21:25] VITALS: PULSE 56; RESP 16; O2SAT 95
[2016-07-27 21:47] LABS: ANION GAP 6 MEQ/L (5-15); AST (GOT) 14 U/L (15-37); BICARBONATE 28.1 MEQ/L (21.0-32.0); CHLORIDE 100 MEQ/L (98-107); GLOMERULAR FILTRATION RATE 78 ML/MIN (>89); POTASSIUM 4.1 MEQ/L (3.5-5.1); SODIUM (NA) 134 MEQ/L (136-145)
[2016-07-27 21:49] LABS: BLOOD UREA NITROGEN 12 MG/DL (7-18)
[2016-07-27 21:53] LABS: ALKALINE PHOSPHATASE 74 U/L (45-117); ALT (GPT) 14 U/L (10-53); TOTAL BILIRUBIN ADULT 0.4 MG/DL (0.2-1.0)
[2016-07-27 21:56] LABS: CREATINE KINASE 43 U/L (26-192)
[2016-07-27] MEDS ORDERED: SODIUM CHLORIDE 0.9% FLUSH 10 ML FLUSH IV FLUSH PRN (22:45)
[2016-07-27] MEDS ORDERED: NALOXONE HCL 0.4 MG/ML AMP IV PRN (22:45)
[2016-07-27] MEDS ORDERED: GLUCAGON 1 MG/ML VIAL OTHER PRN (23:00)
[2016-07-27] MEDS ORDERED: PILL SPLITTER OTHER PRN (23:00)
[2016-07-27] MEDS ORDERED: DEXTROSE 50% IN WATER 50 ML VIAL(D50) IV PUSH PRN (23:00)
[2016-07-28] VITALS (13 sets, daily range): BP systolic 141–205; BP diastolic 63–107; PULSE 55–78; RESP 16–20; TEMP 97.3–98.2; O2SAT 92–97
--- NOTE | 2016-07-28 | HHI.HP ---
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 Patient was DC from hospital 07/26/16. Patient's daughter checks on her twice a day this gives her her medications. Per patient's daughter 07/27/16 evening patient was very unsteady and had a near syncopal episode. Patients daughter was with her patient, "nearly passed out." The daughter was able to catch her. There was no loss of consciousness or actual fall. Blood glucose at that time was 90. Patient's daughter also reports that patient seems to be breathing more deeply than usual. Patient reports feeling very dizzy prior to near syncope episode. Patient reports a SOB nausea and chest tightness prior to near syncopal episode. Chest tightness and nausea have since spontaneously resolved. Reports constipation no BM x 3 days Patient has lost 65 pounds over the past 1 year. There is no reported fevers, chills, cough or congestion. Review of Systems ROS Limitations: Poor Historian Except as stated in HPI: all other systems reviewed are Neg Past Family Social History Past Medical History Atrial fibrillation status post ablation Arthritis History of uterine cancer Hypertension Chronic back pain Diabetes mellitus CVA x 2 prior to 30 years old Past Surgical History Cardiac ablation Cholecystectomy Breast reduction Hysterectomy Reported Medications Cipro (Ciprofloxacin HCl) 250 Mg Tab 250 Mg PO BID 8 Days Trulicity Inj (Dulaglutide Inj) Unknown Strength Pen Unknown Dose SQ Q7D Vitamin D3 (Cholecalciferol) 5,000 Unit Cap 5,000 Units PO DAILY Vitamin B12 Tr (Cyanocobalamin) 1,000 Mcg Tab 1,000 Mcg SL HS Aspirin 81 Mg Tabdr 81 Mg PO DAILY Pravastatin 40 Mg Tab 40 Mg PO HS Sertraline (Sertraline HCl) 100 Mg Tab 100 Mg PO DAILY Magox (Magnesium Oxide) 400 Mg Tab 400 Mg PO DAILY Lisinopril-Hctz 20-12.5 Mg Tab 1 Tab PO BID Metformin (Metformin HCl) 1,000 Mg Tab 1,000 Mg PO HS With a meal Glipizide 5 Mg Tab 5 Mg PO BIDAC Take 30 minutes before a meal Synthroid (Levothyroxine Sodium) 50 Mcg Tab 50 Mcg PO DAILY Eliquis (Apixaban) 5 Mg Tab 5 Mg PO BID Allergies: Coded Allergies: No Known Allergies (Unverified , 07/27/16) Active Ordered Medications Current Medications Medications (Trade) Dose Ordered Sig/Neena Route Start Time Stop Time Status Last Admin (NS Flush) 2 ml UNSCH PRN IV FLUSH 07/27/16 22:45 (NS Flush) 2 ml BID IV FLUSH 07/28/16 09:00 (Narcan Inj) 0.4 mg UNSCH PRN IV 07/27/16 22:45 (Eliquis) 5 mg BID PO 07/28/16 09:00 (Ecotrin Ec) 81 mg DAILY PO 07/28/16 09:00 (Synthroid) 50 mcg DAILY@06 PO 07/28/16 06:00 (Mag-Ox) 400 mg DAILY PO 07/28/16 09:00 (Pravachol) 40 mg HS PO 07/28/16 21:00 (Zoloft) 100 mg DAILY PO 07/28/16 09:00 (D50w (Vial) Inj) 25 ml UNSCH PRN IV PUSH 07/27/16 23:00 (Glucagon Inj) 1 mg UNSCH PRN OTHER 07/27/16 23:00 (Prinivil) 20 mg BID PO 07/28/16 09:00 (Hydrodiuril) 12.5 mg BID PO 07/28/16 09:00 (Pill Splitter) 1 ea UNSCH PRN OTHER 07/27/16 23:00 Family History Family history currently noncontributory. Social History Nonsmoker. Very rare drinker. No illicit drugs. Patient lives by herself. Daughter visits twice daily to make sure patient is taking medications Physical Exam Vital Signs Vital Signs Date Time Temp Pulse Resp B/P Pulse Ox O2 Delivery O2 Flow Rate FiO2 07/27/16 19:25 95 Room Air 4/10/17 18:07 07/27/16 17:43 237/97 07/27/16 17:42 97.7 65 17 220/92 96 Physical Exam GENERAL: This is a well-nourished, well-developed patient, 80-year-old female patient with dementia SKIN: Generalized thinning skin HEAD: Atraumatic. Normocephalic. No temporal or scalp tenderness. EYES: Extraocular motions intact. No scleral icterus. No injection or drainage. CARDIOVASCULAR: Regular rate and rhythm without murmurs, gallops, or rubs. RESPIRATORY: Clear to auscultation. Breath sounds equal bilaterally. No wheezes , rales, or rhonchi. GASTROINTESTINAL: Abdomen soft, non-tender, nondistended. No hepato-splenomegaly , or palpable masses. No guarding. MUSCULOSKELETAL: Extremities without clubbing, cyanosis, or edema. No joint tenderness, effusion, or edema noted. No calf tenderness. Negative Homans sign bilaterally. NEUROLOGICAL: Awake and alert. Motor and sensory grossly within normal limits. Five out of 5 muscle strength in all muscle groups. Normal speech. Laboratory Laboratory Tests Test 07/27/16 07/27/16 19:40 19:50 White Blood Count 14.2 Red Blood Count 4.80 Hemoglobin 12.6 Hematocrit 37.0 Mean Corpuscular Volume 77.1 Mean Corpuscular Hemoglobin 26.3 Mean Corpuscular Hemoglobin 34.2 Concent Red Cell Distribution Width 16.9 Platelet Count 244 Mean Platelet Volume 9.2 Neutrophils (%) (Auto) 73.0 Lymphocytes (%) (Auto) 16.1 Monocytes (%) (Auto) 6.5 Eosinophils (%) (Auto) 3.7 Basophils (%) (Auto) 0.7 Neutrophils # (Auto) 10.4 Lymphocytes # (Auto) 2.3 Monocytes # (Auto) 0.9 Eosinophils # (Auto) 0.5 Basophils # (Auto) 0.1 CBC Comment DIFF FINAL Differential Comment Prothrombin Time 11.7 Prothromb Time International 1.1 Ratio Activated Partial 32.3 Thromboplast Time Sodium Level 134 Potassium Level 4.1 Chloride Level 100 Carbon Dioxide Level 28.1 Anion Gap 6 Blood Urea Nitrogen 12 Creatinine 0.72 Estimat Glomerular Filtration 78 Rate Random Glucose 80 Calcium Level 9.7 Total Bilirubin 0.4 Aspartate Amino Transf 14 (AST/SGOT) Alanine Aminotransferase 14 (ALT/SGPT) Alkaline Phosphatase 74 Total Creatine Kinase 43 Troponin I LESS THAN 0.02 B-Type Natriuretic Peptide 50 Total Protein 6.7 Albumin 2.8 Urine Color YELLOW Urine Turbidity CLEAR Urine pH 6.0 Urine Specific [place] 1.011 Urine Protein NEG Urine Glucose (UA) NEG Urine Ketones NEG Urine Occult Blood NEG Urine Nitrite NEG Urine Bilirubin NEG Urine Urobilinogen LESS THAN 2.0 Urine Leukocyte Esterase NEG Urine RBC LESS THAN 1 Urine WBC LESS THAN 1 Urine Squamous Epithelial 1 Cells Urine Bacteria RARE Urine Mucus FEW Microscopic Urinalysis Comment CATH-CULTURE IND Date/Time Procedure Status Source Growth 07/27/16 19:50 Urine Culture Worksheet Urine Catheterized Urine Pending Result Diagram: 07/27/16193907/27/161939 Imaging Last Impressions Chest X-Ray 07/27/161857 Signed Impressions: Service Date/Time: Wednesday, July 27, 2016 19:03 - CONCLUSION: Minimal parenchymal changes left base, mild compensated cardiomegaly. 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 Near syncope with chest tightness continuous telemetry serial troponin and EKG echocardiogram US bilateral carotid arteries Diabetes mellitus- blood glucose upon arrival 78 after near syncopal episode Will hold oral diabetic medication Continue Accu-Cheks before meals at bedtime Recent hemoglobin A1c 07/25/2016 5.8 Leukocytosis with blood cell count 14.2 recheck in a.m. UTI- culture from 07/24/2016 positive for Escherichia coli sensitive to Cipro Started on ciprofloxacin by mouth at prior hospitalization will continue course 8 days HTN- continue lisinoprilhydrochlorothiazide 2012.5 mg Add lisinopril 20 mg 1 now Abdominal distention with constipation- KUB ordered and pending History of atrial fibrillation- status post ablation currently in sinus rhythm continue home Eliquis DVT prophylaxis patient is on Eliquis Patient plans to move in with her daughter at time of DC Discussed with the ER provider, nursing, patient and daughter at bedside Patient and daughter who is POA would like for CODE STATUS to be DNR Written by Valarie Matute, acting as scribe for Dr. Mcdermott on 07/28/16 at 23 :50. All or portions of this note were transcribed by scribe [Valarie Matute]. I, Dr. Archie Mcdermott personally performed the history, physical exam, and medical decision making; and confirmed the accuracy of the information in the transcribed note. Authenticated by Dr. Archie Mcdermott on 07/28/16 at 23:50. Discussed Condition With patient, ER Valarie Potts Jul 28, 2016 00:00 Archie Mcdermott MD Jul 28, 2016 07:15
--- NOTE | 2016-07-28 00:40 | RADRPT ---
EXAM DATE/TIME: 07/28/2016 00:03 [facility] COMPARISON: No previous studies available for comparison. INDICATIONS : Distention. MEDICAL HISTORY : Diabetes mellitus type II. Carcinoma, uterine. SURGICAL HISTORY : Cholecystectomy. Hysterectomy. ENCOUNTER: Initial ACUITY: 1 day PAIN SCORE: 0/10 LOCATION: abdomen, all quadrants. FINDINGS: Supine view of the abdomen was performed. Copious stool in the rectum. The abdominal bowel gas patter n is normal. No abnormal masses, calcifications, or organomegaly is seen. The osseous structures ar e unremarkable. CONCLUSION: No acute abnormalities. Copious stool in the rectum. Silas Jorge MD on July 28, 2016 at 0:36 Board Certified Radiologist. This report was verified electronically.
[2016-07-28] MEDS ORDERED: HYDROCHLOROTHIAZIDE 12.5 MG CAP PO ONE (01:15)
[2016-07-28] MEDS ORDERED: LISINOPRIL 20 MG TAB PO ONE (01:15)
[2016-07-28] MEDS: LEVOTHYROXINE SODIUM 50 MCG TAB PO SCH (06:09)
[2016-07-28] MEDS ORDERED: BISACODYL EC 5 MG TABEC PO ONE (07:15)
[2016-07-28] MEDS: SODIUM CHLORIDE 0.9% FLUSH 10 ML FLUSH IV FLUSH SCH ×2 (08:13→19:58)
[2016-07-28] MEDS: ASPIRIN EC 81 MG TABEC PO SCH (08:13)
[2016-07-28] MEDS: HYDROCHLOROTHIAZIDE 25 MG TAB PO SCH ×2 (08:13→19:57)
[2016-07-28] MEDS: CIPROFLOXACIN 250 MG TAB PO SCH ×2 (08:13→19:57)
[2016-07-28] MEDS: LISINOPRIL 20 MG TAB PO SCH ×2 (08:13→19:56)
[2016-07-28] MEDS: MAGNESIUM OXIDE 400 MG TAB PO SCH (08:14)
[2016-07-28] MEDS: APIXABAN 5 MG TABLET PO SCH ×2 (08:14→19:57)
[2016-07-28] MEDS: DOCUSATE SODIUM 100 MG CAP PO SCH ×3 (08:14→18:00)
[2016-07-28] MEDS ORDERED: NON-FORMULARY DRUG (Lisinopril-Hctz 1 TAB) PO SCH (09:00)
--- NOTE | 2016-07-28 10:40 | RADRPT ---
EXAM DATE/TIME: 07/28/2016 09:57 [facility] COMPARISON: No previous studies available for comparison. INDICATIONS : Syncope. MEDICAL HISTORY : Hypertension. Thyroid disease. Glaucoma. Cerebrovascular accident. Bradycardia. A.FIB. Arthritis. Diabetes. Uterine cancer. SURGICAL HISTORY : Cholecystectomy. Hysterectomy. Cardiac ablation. Breast reduction. ENCOUNTER: Initial ACUITY: 1 day PAIN SCORE: 5/10 LOCATION: Bilateral neck PEAK SYSTOLIC VELOCITIES (cm/sec): ICA/CCA RATIO: Right: 1.8 Left: 0.9 ICA: Right: 145 Left: 104 CCA: Right: 81 Left: 115 ECA: Right: 114 Left: 115 VERTEBRAL: Right: 40 antegrade Left: 41 antegrade Elevated flow velocities and ICA/CCA ratios have been found to correlate with increased degrees of vessel stenosis, calculated as percentage of diameter relative to a normal segment of distal ICA/CCA FINDINGS: RIGHT CAROTID: No significant stenosis is visualized. The waveforms are within normal limits. LEFT CAROTID: No significant stenosis is visualized. The waveforms are within normal limits. VERTEBRAL ARTERIES: Antegrade flow is seen in both vertebral arteries. MISCELLANEOUS: None. CONCLUSION: 1. No evidence for hemodynamically significant stenosis. Ryan Cooper MD on July 28, 2016 at 10:37 Board Certified Radiologist. This report was verified electronically.
[2016-07-28] MEDS: SERTRALINE HCL 100 MG TAB PO SCH (11:41)
--- NOTE | 2016-07-28 11:43 | EKG ---
Date Performed: 07/27/2016 Time Performed: 17:55:39 PTAGE: 80 years EKG: SINUS BRADYCARDIA RIGHT BUNDLE BRANCH BLOCK LEFT ANTERIOR FASCICULAR BLOCK POSSIBLE ANTERIO R MYOCARDIAL INFARCTION ABNORMAL ECG INTERPRETATION BASED ON A DEFAULT AGE OF 40 YEARS NO PREVIOUS TRACING DOCTOR: Sam Delcid Interpretating Date/Time 07/28/2016 11:38:51
[2016-07-28] MEDS ORDERED: hydrALAZINE HCL 20 MG/ML VIAL IV PUSH PRN (13:00)
[2016-07-28] MEDS: amLODIPine BESYLATE 5 MG TAB PO SCH (13:21)
[2016-07-28] MEDS ORDERED: cloNIDine HCL 0.1 MG TAB PO PRN (13:30)
--- NOTE | 2016-07-28 13:52 | EC ---
Study Study Date:07/28/2016 STUDY CONCLUSIONS SUMMARY - Left ventricle: The cavity size was normal. Wall thickness was increased in a pattern of moderate LVH. Systolic function was vigorous. The estimated ejection fraction was in the range of 65% to 70%. Wall motion was normal; there were no regional wall motion abnormalities. - Pulmonary arteries: PA peak pressure: 35mm Hg (S). If LV function is below 40, please consider prescribing an ACEI or ARB or document rationale for non-use. PROCEDURE DATA STUDY STATUS: Elective. Procedure: Transthoracic echocardiography. Image quality was good. Scanning was performed from the parasternal, apical, and subcostal acoustic windows. Study completion: The patient tolerated the procedure well. Transthoracic echocardiography. M-mode, complete 2D, complete spectral Doppler, and color Doppler. Patient status: Inpatient. CARDIAC ANATOMY LEFT VENTRICLE: The cavity size was normal. Wall thickness was increased in a pattern of moderate LVH. Systolic function was vigorous. The estimated ejection fraction was in the range of 65% to 70%. Wall motion was normal; there were no regional wall motion abnormalities. AORTIC VALVE: Trileaflet; normal thickness leaflets. Doppler: Transvalvular velocity was within the normal range. There was no stenosis. No regurgitation. AORTA: Aortic root: The aortic root was normal in size. MITRAL VALVE: Structurally normal valve. Doppler: Transvalvular velocity was within the normal range. There was no evidence for stenosis. Trace regurgitation. LEFT ATRIUM: The atrium was normal in size. RIGHT VENTRICLE: The cavity size was normal. Wall thickness was normal. PULMONIC VALVE: Doppler: Transvalvular velocity was within the normal range. There was no evidence for stenosis. No regurgitation. TRICUSPID VALVE: Structurally normal valve. Doppler: Transvalvular velocity was within the normal range. No regurgitation. PULMONARY ARTERY: The main pulmonary artery was normal-sized. Systolic pressure was within the normal range. RIGHT ATRIUM: The atrium was normal in size. PERICARDIUM: There was no pericardial effusion. SYSTEMIC VEINS: Inferior vena cava: The vessel was normal in size. BASIC MEASUREMENTS ADULT NORMAL Left ventricle LV internal dimension, ED, chordal level, 45.7 mm 43-52 PLAX LV internal dimension, ES, chordal level, 32.5 mm 23-38 PLAX Fractional shortening, chordal level, PLAX *29 % >29 LV posterior wall thickness, ED 13.1 mm IVS/LVPW ratio, ED 1.16 <1.3 Volume, ED, MOD, 1-plane 69 ml Volume, ES, MOD, 1-plane 25 ml Ejection fraction, MOD, 1-plane 64 % Stroke volume, MOD, 1-plane 44 ml Ventricular septum Septal thickness, ED 15.2 mm Aortic valve Leaflet separation 23 mm 15-26 Right ventricle RV internal dimension, ED, PLAX 31.6 mm 19-38 BASIC MEASUREMENTS ADULT NORMAL Aortic valve Leaflet separation 23 mm 15-26 Aorta Root diameter, ED 30 mm 20-37 Left atrium Anterior-posterior dimension, ES 39 mm 19-40 LA/aortic root ratio 1.3 DOPPLER MEASUREMENTS ADULT NORMAL Main pulmonary artery Pressure, S *35 mm Hg =30 Mitral valve Peak E-wave velocity 62.2 cm/s Peak A-wave velocity 120 cm/s Peak E/A ratio 0.5 Tricuspid valve Regurgitant peak velocity 251 cm/s Peak RV-RA gradient, S 25 mm Hg Maximal regurgitant velocity 251 cm/s Systemic veins Estimated CVP 10 mm Hg Right ventricle RV pressure, S *35 mm Hg <30 LEGEND: Mean values are shown as u=mean value. Asterisk (*) retana values outside specified normal range. Prepared and signed by Serge Lyon [id number]
--- NOTE | 2016-07-28 13:57 | HHI.PR ---
Subjective Remarks The patient was resting comfortably in bed. She did describe shortness of breath when sitting up. She said the shortness of breath gets better when she lays down. It has been an ongoing problem. Her daughter was at the bedside and her questions were answered. Discussed with nursing. Objective Vitals Vital Signs Date Time Temp Pulse Resp B/P Pulse Ox O2 Delivery O2 Flow Rate FiO2 07/28/16 13:28 78 19 141/63 93 152/77 155/84 07/28/16 11:55 98.0 58 18 205/102 95 07/28/16 10:34 59 186/84 07/28/16 08:00 56 07/28/16 07:43 97.8 60 16 204/107 95 07/28/16 04:16 98.2 55 20 149/68 95 07/28/16 01:24 55 07/28/16 00:57 97.6 56 19 184/79 95 07/28/16 00:21 55 17 189/70 95 Room Air 07/27/16 21:25 56 16 95 Room Air 07/27/16 19:45 48 20 194/88 96 Room Air 07/27/16 19:25 95 Room Air 07/27/16 18:07 07/27/16 17:43 237/97 07/27/16 17:42 97.7 65 17 220/92 96 Result Diagram: 07/27/16193907/27/161939 Imaging Last Impressions Carotid Artery Ultrasound 07/28/16 0000 Signed Impressions: Service Date/Time: Thursday, July 28, 2016 09:57 - CONCLUSION: 1. No evidence for hemodynamically significant stenosis. Ryan Cooper MD Chest X-Ray 07/27/16 1858 Signed Impressions: Service Date/Time: Wednesday, July 27, 2016 19:03 - CONCLUSION: Minimal parenchymal changes left base, mild compensated cardiomegaly. Darvin Dee MD FACR Abdomen X-Ray 07/27/16 0000 Signed Impressions: Service Date/Time: Thursday, July 28, 2016 00:03 - CONCLUSION: No acute abnormalities. Copious stool in the rectum. Silas Jorge MD Objective Remarks GENERAL: This is a well-nourished, well-developed patient in [facility]. SKIN: Generalized thinning skin. HEAD: Atraumatic. Normocephalic. No temporal or scalp tenderness. EYES: Extraocular motions intact. No scleral icterus. No injection or drainage. CARDIOVASCULAR: Regular rate and rhythm, grade 1 systolic murmur. RESPIRATORY: Clear to auscultation. Breath sounds equal bilaterally. No wheezes , rales, or rhonchi. GASTROINTESTINAL: Abdomen soft, non-tender, nondistended. No hepato-splenomegaly , or palpable masses. No guarding. MUSCULOSKELETAL: Extremities without clubbing, cyanosis, or edema. No joint tenderness, effusion, or edema noted. No calf tenderness. Negative Homans sign bilaterally. NEUROLOGICAL: Awake and alert. Motor and sensory grossly within normal limits. Five out of 5 muscle strength in all muscle groups. Normal speech. PSYCH: Mood and affect appropriate. Medications and IVs Current Medications Medications (Trade) Dose Ordered Sig/Neena Route Start Time Stop Time Status Last Admin (NS Flush) 2 ml UNSCH PRN IV FLUSH 07/27/16 22:45 (NS Flush) 2 ml BID IV FLUSH 07/28/16 09:00 07/28/16 08:13 (Narcan Inj) 0.4 mg UNSCH PRN IV 07/27/16 22:45 (Eliquis) 5 mg BID PO 07/28/16 09:00 07/28/16 08:14 (Ecotrin Ec) 81 mg DAILY PO 07/28/16 09:00 07/28/16 08:13 (Synthroid) 50 mcg DAILY@06 PO 07/28/16 06:00 07/28/16 06:09 (Mag-Ox) 400 mg DAILY PO 07/28/16 09:00 07/28/16 08:14 (Pravachol) 40 mg HS PO 07/28/16 21:00 (Zoloft) 100 mg DAILY PO 07/28/16 09:00 07/28/16 11:41 (D50w (Vial) Inj) 25 ml UNSCH PRN IV PUSH 07/27/16 23:00 (Glucagon Inj) 1 mg UNSCH PRN OTHER 07/27/16 23:00 (Prinivil) 20 mg BID PO 07/28/16 09:00 07/28/16 08:13 (Hydrodiuril) 12.5 mg BID PO 07/28/16 09:00 07/28/16 08:13 (Pill Splitter) 1 ea UNSCH PRN OTHER 07/27/16 23:00 (Cipro) 250 mg BID PO 07/28/16 09:00 08/05/16 08:59 07/28/16 08:13 (Colace) 100 mg TID PO 07/28/16 09:00 07/28/16 13:21 (Apresoline Inj) 10 mg Q4HR PRN IV PUSH 07/28/16 13:00 (Norvasc) 5 mg DAILY PO 07/28/16 13:00 07/28/16 13:21 (Catapres) 0.1 mg Q6H PRN PO 07/28/16 13:30 A/P Problem List: (1) Near syncope ICD Code: R55 Status: Acute Assessment and Plan This is an 80 year old female patient with a past medical history which includes : dementia, atrial fibrillation status post ablation, arthritis, uterine cancer , hypertension, chronic back pain, diabetes mellitus and 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 Near syncope with chest tightness and shortness of breath May be s/t hypertension or hypoglycemia. Carotid US negative. - continuous telemetry. - serial troponin and EKG. - echocardiogram. - PT. - treat hypertension and monitor glucose levels. - CXR PA/ Lateral. - oxygen and nebs as needed. Diabetes mellitus Blood glucose upon arrival 78 after near syncopal episode. Recent hemoglobin A1c 07/25/2016 5.8 - Will hold oral diabetic medication. Likely resume metformin only upon discharge. - Continue Accu-Cheks before meals at bedtime Leukocytosis White blood cell count 14.2. UTI- culture from 07/24/2016 positive for Escherichia coli sensitive to Cipro. - Started on ciprofloxacin by mouth at prior hospitalization will continue course 8 days. Hypertensive urgency SBP has been over 200 at times. - continue lisinoprilhydrochlorothiazide 2012.5 mg BID. - add amlodipine 5 mg daily. - Hydralazine as needed. Constipation KUB with stool in colon. The pt has had a bowel movement. - bowel regimen. History of atrial fibrillation Status post ablation, currently in sinus rhythm. - continue home Eliquis. - telemetry. DVT prophylaxis patient is on Eliquis. Discharge Planning Awaiting clinical improvement. John Chirinos DO Jul 28, 2016 13:56
--- NOTE | 2016-07-28 14:54 | RADRPT ---
EXAM DATE/TIME: 07/28/2016 14:47 [place] COMPARISON: CHEST SINGLE AP, July 27, 2016, 19:03. INDICATIONS : Short of breath. MEDICAL HISTORY : None. SURGICAL HISTORY : None. ENCOUNTER: Initial ACUITY: 2 weeks PAIN SCORE: 0/10 LOCATION: Bilateral chest FINDINGS: PA and lateral views of the chest demonstrate the lungs to be symmetrically aerated without evidence of mass, infiltrate or effusion. The cardiomediastinal contours are unremarkable. Osseous structure s are intact. CONCLUSION: No acute disease. Ryan Cooper MD on July 28, 2016 at 14:52 Board Certified Radiologist. This report was verified electronically.
[2016-07-28] MEDS: INSULIN ASPART SUPPLEMENTAL SCALE SQ SCH ×2 (16:00→20:00)
[2016-07-28] MEDS: PRAVASTATIN SOD 40 MG TAB PO SCH (19:57)
[2016-07-29] VITALS (7 sets, daily range): BP systolic 130–190; BP diastolic 72–82; PULSE 58–71; RESP 16–20; TEMP 97–98.6; O2SAT 93–99
[2016-07-29] MEDS: LEVOTHYROXINE SODIUM 50 MCG TAB PO SCH (05:22)
[2016-07-29] MEDS: INSULIN ASPART SUPPLEMENTAL SCALE SQ SCH ×4 (06:34→22:27)
[2016-07-29] MEDS: SERTRALINE HCL 100 MG TAB PO SCH (08:22)
[2016-07-29] MEDS: HYDROCHLOROTHIAZIDE 25 MG TAB PO SCH ×2 (08:22→22:24)
[2016-07-29] MEDS: SODIUM CHLORIDE 0.9% FLUSH 10 ML FLUSH IV FLUSH SCH ×2 (08:22→22:26)
[2016-07-29] MEDS: DOCUSATE SODIUM 100 MG CAP PO SCH ×3 (08:23→22:25)
[2016-07-29] MEDS: APIXABAN 5 MG TABLET PO SCH ×2 (08:23→22:25)
[2016-07-29] MEDS: amLODIPine BESYLATE 5 MG TAB PO SCH (08:23)
[2016-07-29] MEDS: ASPIRIN EC 81 MG TABEC PO SCH (08:23)
[2016-07-29] MEDS: LISINOPRIL 20 MG TAB PO SCH ×2 (08:23→22:24)
[2016-07-29] MEDS: CIPROFLOXACIN 250 MG TAB PO SCH ×2 (08:23→22:25)
[2016-07-29] MEDS: MAGNESIUM OXIDE 400 MG TAB PO SCH (08:23)
[2016-07-29 10:07] LABS: MEAN CELL VOLUME 77.7 FL (80.0-100.0); MEAN CORPUSCULAR HGB CONC 33.5 % (32.0-36.0); PLATELET COUNT 251 TH/MM3 (150-450); RED BLOOD COUNT 5.41 MIL/MM3 (4.00-5.30); RED CELL DISTRIBUTION WIDTH 17.2 % (11.6-17.2); REVIEW FLAG FINAL; WHITE BLOOD COUNT 13.3 TH/MM3 (4.0-11.0)
[2016-07-29 10:35] LABS: BICARBONATE 28.4 MEQ/L (21.0-32.0); MAGNESIUM 2.1 MG/DL (1.5-2.5); POTASSIUM 3.5 MEQ/L (3.5-5.1)
--- NOTE | 2016-07-29 11:29 | EKG ---
Date Performed: 07/28/2016 Time Performed: 13:49:20 PTAGE: 80 years EKG: SINUS BRADYCARDIA RIGHT BUNDLE BRANCH BLOCK INFERIOR MYOCARDIAL INFARCTION ANTEROSEPTAL EDU CARDIAL INFARCTION ABNORMAL ECG PREVIOUS TRACING : 07/27/2016 17.55 DOCTOR: Yash Givens Interpretating Date/Time 07/29/2016 11:28:31
--- NOTE | 2016-07-29 12:27 | HHI.PR ---
Subjective Remarks The pt said her breathing was a little "wobbly". Her daughter was at the bedside. The pt felt weak in general. They had questions about her blood sugar regimen. Objective Vitals Vital Signs Date Time Temp Pulse Resp B/P Pulse Ox O2 Delivery O2 Flow Rate FiO2 07/29/16 11:58 97.7 61 18 174/72 95 07/29/16 08:00 97.9 61 16 190/81 93 07/29/16 04:00 97.0 67 18 145/82 99 07/29/16 00:23 59 07/29/16 00:00 98.0 58 17 130/82 95 07/28/16 20:00 97.3 77 18 166/77 97 07/28/16 16:10 98.2 65 18 158/69 92 07/28/16 14:15 98.2 64 18 166/73 93 07/28/16 14:00 58 07/28/16 13:28 78 19 141/63 93 152/77 155/84 Result Diagram: 07/29/16 0837 07/29/16 0837 Imaging Last Impressions Chest X-Ray 07/28/16 0000 Signed Impressions: Service Date/Time: Thursday, July 28, 2016 14:47 - CONCLUSION: No acute disease. Ryan Cooper MD Carotid Artery Ultrasound 07/28/16 0000 Signed Impressions: Service Date/Time: Thursday, July 28, 2016 09:57 - CONCLUSION: 1. No evidence for hemodynamically significant stenosis. Ryan Cooper MD Abdomen X-Ray 07/27/16 0000 Signed Impressions: Service Date/Time: Thursday, July 28, 2016 00:03 - CONCLUSION: No acute abnormalities. Copious stool in the rectum. Silas Jorge MD Objective Remarks GENERAL: This is a well-nourished, well-developed patient in [facility]. SKIN: Generalized thinning skin. HEAD: Atraumatic. Normocephalic. No temporal or scalp tenderness. EYES: Extraocular motions intact. No scleral icterus. No injection or drainage. CARDIOVASCULAR: Regular rate and rhythm, grade 1 systolic murmur. RESPIRATORY: Clear to auscultation. Breath sounds equal bilaterally. No wheezes , rales, or rhonchi. GASTROINTESTINAL: Abdomen soft, non-tender, nondistended. No hepato-splenomegaly , or palpable masses. No guarding. MUSCULOSKELETAL: Extremities without clubbing, cyanosis, or edema. No joint tenderness, effusion, or edema noted. No calf tenderness. Negative Homans sign bilaterally. NEUROLOGICAL: Awake and alert. Motor and sensory grossly within normal limits. Five out of 5 muscle strength in all muscle groups. Normal speech. PSYCH: Mood and affect appropriate. Medications and IVs Current Medications Medications (Trade) Dose Ordered Sig/Neena Route Start Time Stop Time Status Last Admin (NS Flush) 2 ml UNSCH PRN IV FLUSH 07/27/16 22:45 (NS Flush) 2 ml BID IV FLUSH 07/28/16 09:00 07/29/16 08:22 (Narcan Inj) 0.4 mg UNSCH PRN IV 07/27/16 22:45 (Eliquis) 5 mg BID PO 07/28/16 09:00 07/29/16 08:23 (Ecotrin Ec) 81 mg DAILY PO 07/28/16 09:00 07/29/16 08:23 (Synthroid) 50 mcg DAILY@06 PO 07/28/16 06:00 07/29/16 05:22 (Mag-Ox) 400 mg DAILY PO 07/28/16 09:00 07/29/16 08:23 (Pravachol) 40 mg HS PO 07/28/16 21:00 07/28/16 19:57 (Zoloft) 100 mg DAILY PO 07/28/16 09:00 07/29/16 08:22 (D50w (Vial) Inj) 25 ml UNSCH PRN IV PUSH 07/27/16 23:00 (Glucagon Inj) 1 mg UNSCH PRN OTHER 07/27/16 23:00 (Prinivil) 20 mg BID PO 07/28/16 09:00 07/29/16 08:23 (Hydrodiuril) 12.5 mg BID PO 07/28/16 09:00 07/29/16 08:22 (Pill Splitter) 1 ea UNSCH PRN OTHER 07/27/16 23:00 (Cipro) 250 mg BID PO 07/28/16 09:00 08/05/16 08:59 07/29/16 08:23 (Colace) 100 mg TID PO 07/28/16 09:00 07/29/16 11:56 (Apresoline Inj) 10 mg Q4HR PRN IV PUSH 07/28/16 13:00 (Norvasc) 10 mg DAILY PO 07/30/16 09:00 A/P Problem List: (1) Near syncope ICD Code: R55 Status: Acute Assessment and Plan This is an 80 year old female patient with a past medical history which includes : dementia, atrial fibrillation status post ablation, arthritis, uterine cancer , hypertension, chronic back pain, diabetes mellitus and 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 Near syncope with chest tightness and shortness of breath May be s/t hypertension or hypoglycemia. Carotid US negative. Echo with normal EF. Trops flat. Repeat CXR unremarkable. - continuous telemetry. - PT. - treat hypertension and monitor glucose levels. - oxygen and nebs as needed. Diabetes mellitus Blood glucose upon arrival 78 after near syncopal episode. Recent hemoglobin A1c 07/25/2016 5.8%. Hypoglycemia likely cause of pt's near syncopal episodes. - Will hold oral diabetic medication. Likely resume only low dose metformin upon discharge. - Continue Accu-Cheks before meals at bedtime Leukocytosis White blood cell count 14.2. UTI- culture from 07/24/2016 positive for Escherichia coli sensitive to Cipro. - Started on ciprofloxacin by mouth at prior hospitalization will continue course 8 days. Hypertensive urgency SBP has been over 200 at times. - continue lisinoprilhydrochlorothiazide 2012.5 mg BID. - increase amlodipine to 10 mg daily. - Hydralazine as needed. Constipation KUB with stool in colon. The pt has had a bowel movement. - bowel regimen. History of atrial fibrillation Status post ablation, currently in sinus rhythm. - continue home Eliquis. - telemetry. DVT prophylaxis patient is on Eliquis. Discharge Planning Awaiting clinical improvement. John Chirinos DO Jul 29, 2016 12:27
[2016-07-29] MEDS: SENNOSIDES 8.6 MG TAB PO SCH (13:23)
[2016-07-29] MEDS: PRAVASTATIN SOD 40 MG TAB PO SCH (22:24)
[2016-07-30] VITALS: BP 145/65; PULSE 86; RESP 20; TEMP 98.2; O2SAT 92
[2016-07-30 04:00] VITALS: BP 132/62; PULSE 76; RESP 20; TEMP 98.1; O2SAT 94
[2016-07-30] MEDS: LEVOTHYROXINE SODIUM 50 MCG TAB PO SCH (05:37)
[2016-07-30 05:46] LABS: AUTOMATED NEUTROPHIL # 10.2 TH/MM3 (1.8-7.7); BASOPHIL # 0.1 TH/MM3 (0-0.2); BASOPHIL % 0.6 % (0.0-2.0); EOSINOPHIL # 0.7 TH/MM3 (0-0.4); EOSINOPHIL % 4.8 % (0.0-4.0); HEMATOCRIT 42.9 % (35.0-46.0); HEMO FLAGS DIFF FINAL; LYMPH % 17.2 % (9.0-44.0); LYMPHOCYTE # 2.5 TH/MM3 (1.0-4.8); MEAN CELL VOLUME 79.2 FL (80.0-100.0); MEAN CORPUSCULAR HEMOGLOBIN 25.4 PG (27.0-34.0); MEAN CORPUSCULAR HGB CONC 32.1 % (32.0-36.0); MONO % 7.3 % (0.0-8.0); NEUT % 70.1 % (16.0-70.0); PLATELET COUNT 230 TH/MM3 (150-450); RED BLOOD COUNT 5.42 MIL/MM3 (4.00-5.30); RED CELL DISTRIBUTION WIDTH 17.3 % (11.6-17.2); WHITE BLOOD COUNT 14.5 TH/MM3 (4.0-11.0)
[2016-07-30 06:25] VITALS: PULSE 71
[2016-07-30] MEDS: INSULIN ASPART SUPPLEMENTAL SCALE SQ SCH ×4 (07:00→20:59)
[2016-07-30 08:00] VITALS: BP 122/75; PULSE 89; RESP 16; TEMP 98.3; O2SAT 97
[2016-07-30] MEDS ORDERED: POTASSIUM CHLORIDE 25 MEQ EFFERVESCENT TAB PO ONE (08:45)
[2016-07-30] MEDS: APIXABAN 5 MG TABLET PO SCH ×2 (09:00→20:55)
--- NOTE | 2016-07-30 09:46 | HHI.PR ---
Subjective Remarks The patient was lethargic. Family and nursing were at the bedside. The patient was unable to complain of anything except for feeling tired. She denied shortness of breath, chest pain, headache or any other concern. Objective Vitals Vital Signs Date Time Temp Pulse Resp B/P Pulse Ox O2 Delivery O2 Flow Rate FiO2 07/30/16 06:25 71 07/30/16 04:00 98.1 76 20 132/62 94 07/30/16 00:00 98.2 86 20 145/65 92 07/29/16 20:00 98.3 71 20 153/82 94 07/29/16 16:00 98.6 66 18 135/78 94 07/29/16 11:58 97.7 61 18 174/72 95 I/O 07/29/16 07/29/16 07/29/16 07/30/16 07/30/16 07/30/16 07:00 15:00 23:00 07:00 15:00 23:00 Intake Total 720 ml 120 ml 240 ml Balance 720 ml 120 ml 240 ml Intake Oral 720 ml 120 ml 240 ml # Voids 3 2 # Bowel Movements 0 Result Diagram: 07/30/16 0440 07/29/16 0837 Imaging Last Impressions Chest X-Ray 07/28/16 0000 Signed Impressions: Service Date/Time: Thursday, July 28, 2016 14:47 - CONCLUSION: No acute disease. Ryan Cooper MD Carotid Artery Ultrasound 07/28/16 0000 Signed Impressions: Service Date/Time: Thursday, July 28, 2016 09:57 - CONCLUSION: 1. No evidence for hemodynamically significant stenosis. Ryan Cooper MD Abdomen X-Ray 07/27/16 0000 Signed Impressions: Service Date/Time: Thursday, July 28, 2016 00:03 - CONCLUSION: No acute abnormalities. Copious stool in the rectum. Silas Jorge MD Objective Remarks GENERAL: This is a well-nourished, well-developed patient in [facility]. SKIN: Generalized thinning skin. HEAD: Atraumatic. Normocephalic. No temporal or scalp tenderness. EYES: Extraocular motions intact. No scleral icterus. No injection or drainage. CARDIOVASCULAR: Regular rate and rhythm, grade 1 systolic murmur. RESPIRATORY: Clear to auscultation. Breath sounds equal bilaterally. No wheezes , rales, or rhonchi. GASTROINTESTINAL: Abdomen soft, non-tender, nondistended. No hepato-splenomegaly , or palpable masses. No guarding. MUSCULOSKELETAL: Extremities without clubbing, cyanosis, or edema. No joint tenderness, effusion, or edema noted. No calf tenderness. Negative Homans sign bilaterally. NEUROLOGICAL: Slightly lethargic. Motor and sensory grossly within normal limits. Five out of 5 muscle strength in all muscle groups. Normal speech. PSYCH: Mood and affect appropriate. Medications and IVs Current Medications Medications (Trade) Dose Ordered Sig/Neena Route Start Time Stop Time Status Last Admin (NS Flush) 2 ml UNSCH PRN IV FLUSH 07/27/16 22:45 (NS Flush) 2 ml BID IV FLUSH 07/28/16 09:00 07/29/16 22:26 (Narcan Inj) 0.4 mg UNSCH PRN IV 07/27/16 22:45 (Eliquis) 5 mg BID PO 07/28/16 09:00 07/29/16 22:25 (Ecotrin Ec) 81 mg DAILY PO 07/28/16 09:00 07/29/16 08:23 (Synthroid) 50 mcg DAILY@06 PO 07/28/16 06:00 07/30/16 05:37 (Mag-Ox) 400 mg DAILY PO 07/28/16 09:00 07/29/16 08:23 (Pravachol) 40 mg HS PO 07/28/16 21:00 07/29/16 22:24 (Zoloft) 100 mg DAILY PO 07/28/16 09:00 07/29/16 08:22 (D50w (Vial) Inj) 25 ml UNSCH PRN IV PUSH 07/27/16 23:00 (Glucagon Inj) 1 mg UNSCH PRN OTHER 07/27/16 23:00 (Prinivil) 20 mg BID PO 07/28/16 09:00 07/29/16 22:24 (Hydrodiuril) 12.5 mg BID PO 07/28/16 09:00 07/29/16 22:24 (Pill Splitter) 1 ea UNSCH PRN OTHER 07/27/16 23:00 (Cipro) 250 mg BID PO 07/28/16 09:00 08/05/16 08:59 07/29/16 22:25 (Apresoline Inj) 10 mg Q4HR PRN IV PUSH 07/28/16 13:00 (Norvasc) 10 mg DAILY PO 07/30/16 09:00 (Colace) 100 mg BID PO 07/29/16 21:00 07/29/16 22:25 (Senokot) 17.2 mg DAILY PO 07/29/16 12:30 07/29/16 13:23 (K-Lyte Cl Eff) 25 meq ONCE ONCE PO 07/30/16 08:45 07/30/16 08:46 UNV A/P Problem List: (1) Near syncope ICD Code: R55 Status: Acute Assessment and Plan This is an 80 year old female patient with a past medical history which includes : dementia, atrial fibrillation status post ablation, arthritis, uterine cancer , hypertension, chronic back pain, diabetes mellitus and 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 Near syncope with chest tightness and shortness of breath May be s/t hypertension or hypoglycemia. Carotid US negative. Echo with normal EF. Trops flat. Repeat CXR unremarkable. Now more lethargic. - continuous telemetry. - PT. - treat hypertension and monitor glucose levels. - oxygen and nebs as needed. - check TSH, ABG, CMP, B12 level. - blood cultures x 2. Leukocytosis Persistent. Possibly s/t UTI, culture from 07/24/2016 positive for Escherichia coli sensitive to Cipro. - check blood cultures. - continue Cipro. - follow CBC. Diabetes mellitus Blood glucose upon arrival 78 after near syncopal episode. Recent hemoglobin A1c 07/25/2016 5.8%. Hypoglycemia likely cause of pt's near syncopal episodes. Glucose well controlled 07/30. - Will hold oral diabetic medication. Likely resume only low dose metformin upon discharge. - Continue Accu-Cheks before meals at bedtime Hypertensive urgency SBP has been over 200 at times. Improved on current regimen. - continue lisinoprilhydrochlorothiazide 2012.5 mg BID. - increased amlodipine to 10 mg daily. - Hydralazine as needed. Constipation KUB with stool in colon. The pt has had a bowel movement. - bowel regimen. Add Miralax. History of atrial fibrillation Status post ablation, currently in sinus rhythm. - continue home Eliquis. - telemetry. DVT prophylaxis patient is on Eliquis. Discharge Planning Awaiting clinical improvement. John Chirinos DO Jul 30, 2016 09:46
[2016-07-30] MEDS: HYDROCHLOROTHIAZIDE 25 MG TAB PO SCH ×2 (09:56→20:55)
[2016-07-30] MEDS: DOCUSATE SODIUM 100 MG CAP PO SCH ×2 (09:56→20:55)
[2016-07-30] MEDS: ASPIRIN EC 81 MG TABEC PO SCH (09:56)
[2016-07-30] MEDS: SERTRALINE HCL 100 MG TAB PO SCH (09:56)
[2016-07-30] MEDS: LISINOPRIL 20 MG TAB PO SCH ×2 (09:57→20:55)
[2016-07-30] MEDS: SODIUM CHLORIDE 0.9% FLUSH 10 ML FLUSH IV FLUSH SCH ×2 (09:57→20:59)
[2016-07-30] MEDS: MAGNESIUM OXIDE 400 MG TAB PO SCH (09:57)
[2016-07-30] MEDS: CIPROFLOXACIN 250 MG TAB PO SCH ×2 (09:57→20:55)
[2016-07-30] MEDS: SENNOSIDES 8.6 MG TAB PO SCH (09:57)
[2016-07-30] MEDS: POLYETHYLENE GLYCOL 17 GM PKG PO SCH (10:06)
[2016-07-30 11:10] LABS: ANION GAP 11 MEQ/L (5-15); AST (GOT) 12 U/L (15-37); BICARBONATE 28.5 MEQ/L (21.0-32.0); BLOOD UREA NITROGEN 17 MG/DL (7-18); CHLORIDE 97 MEQ/L (98-107); GLOMERULAR FILTRATION RATE 62 ML/MIN (>89); POTASSIUM 3.6 MEQ/L (3.5-5.1); SODIUM (NA) 136 MEQ/L (136-145)
[2016-07-30 11:37] LABS: ALKALINE PHOSPHATASE 77 U/L (45-117); ALT (GPT) 17 U/L (10-53); TOTAL BILIRUBIN ADULT 0.3 MG/DL (0.2-1.0)
[2016-07-30 11:46] LABS: BLOOD GAS BASE EXCESS 4.9 mmol/L (-2-2); BLOOD GAS CARBOXYHEMOGLOBIN 1.3 % (0-4); BLOOD GAS HCO3 29 mmol/L (22-26); BLOOD GAS METHEMOGLOBIN 0.8 % (0-2); BLOOD GAS O2 HGB SATURATION 92 % (90-100); BLOOD GAS OXYGEN CONTENT 19.3 Vol % (12.0-20.0); BLOOD GAS PCO2 40 mmHg (38-42); BLOOD GAS PO2 73 mmHg (61-120); BLOOD GAS TOTAL HGB 14.9 G/DL (12.0-16.0); CRITICAL VALUE NO; DRAW SITE LT RADIAL; FIO2 21 %; NUMBER OF ARTERIAL PUNCTURES 1; STAT NO; TEMP CORR TO 98.6; ULNAR PULSE PRESENT
[2016-07-30 12:00] VITALS: BP 137/59; PULSE 82; RESP 18; TEMP 97.7; O2SAT 94
[2016-07-30 16:00] VITALS: BP 129/60; PULSE 82; RESP 18; TEMP 98; O2SAT 97
[2016-07-30] MEDS ORDERED: LACTULOSE SYRUP 20 GM/30 ML CUP PO ONE (18:15)
[2016-07-30] MEDS: PRAVASTATIN SOD 40 MG TAB PO SCH (20:55)
[2016-07-31] VITALS (9 sets, daily range): BP systolic 114–143; BP diastolic 58–70; PULSE 65–91; RESP 16–19; TEMP 97.6–98.6; O2SAT 91–95
[2016-07-31] MEDS: LEVOTHYROXINE SODIUM 50 MCG TAB PO SCH (06:12)
[2016-07-31] MEDS: INSULIN ASPART SUPPLEMENTAL SCALE SQ SCH ×4 (06:12→20:06)
[2016-07-31] MEDS: POLYETHYLENE GLYCOL 17 GM PKG PO SCH (08:32)
[2016-07-31] MEDS: LISINOPRIL 20 MG TAB PO SCH ×2 (08:33→20:03)
[2016-07-31] MEDS: HYDROCHLOROTHIAZIDE 25 MG TAB PO SCH (08:34)
[2016-07-31] MEDS: MAGNESIUM OXIDE 400 MG TAB PO SCH (08:34)
[2016-07-31] MEDS: SERTRALINE HCL 100 MG TAB PO SCH (08:35)
[2016-07-31] MEDS: ASPIRIN EC 81 MG TABEC PO SCH (08:36)
[2016-07-31] MEDS: DOCUSATE SODIUM 100 MG CAP PO SCH ×2 (08:36→20:04)
[2016-07-31] MEDS: APIXABAN 5 MG TABLET PO SCH ×2 (08:36→20:03)
[2016-07-31] MEDS: SENNOSIDES 8.6 MG TAB PO SCH (08:37)
[2016-07-31] MEDS: CIPROFLOXACIN 250 MG TAB PO SCH ×2 (08:38→20:03)
[2016-07-31] MEDS: SODIUM CHLORIDE 0.9% FLUSH 10 ML FLUSH IV FLUSH SCH ×2 (08:38→20:06)
[2016-07-31] MEDS ORDERED: RESP: ALBUTEROL 2.5 MG/IPRATROPIUM 0.5 MG NEB (SCH) NEB ONE (09:00)
[2016-07-31] MEDS ORDERED: RESP: ALBUTEROL 2.5 MG/IPRATROPIUM 0.5 MG NEB (PRN) NEB (09:00)
--- NOTE | 2016-07-31 09:01 | HHI.PR ---
Subjective Remarks The patient still feels weak. Daughter at the bedside. The patient denies any depression. She is looking forward to going home. No acute complaints. Trying to eat breakfast. Discussed with nursing. Objective Vitals Vital Signs Date Time Temp Pulse Resp B/P Pulse Ox O2 Delivery O2 Flow Rate FiO2 07/31/16 04:00 97.6 74 18 118/59 93 07/31/16 03:16 65 07/31/16 00:00 97.7 77 18 123/67 95 07/30/16 19:35 Room Air 07/30/16 16:00 98.0 82 18 129/60 97 07/30/16 12:00 97.7 82 18 137/59 94 I/O 07/30/16 07/30/16 07/30/16 07/31/16 07/31/16 07/31/16 07:00 15:00 23:00 07:00 15:00 23:00 Intake Total 240 ml 720 ml 360 ml 100 ml Balance 240 ml 720 ml 360 ml 100 ml Intake Oral 240 ml 720 ml 360 ml 100 ml # Voids 2 2 1 1 # Bowel Movements 0 1 Result Diagram: 07/30/16 0440 07/30/16 1014 Imaging Last Impressions Chest X-Ray 07/28/16 0000 Signed Impressions: Service Date/Time: Thursday, July 28, 2016 14:47 - CONCLUSION: No acute disease. Ryan Cooper MD Carotid Artery Ultrasound 07/28/16 0000 Signed Impressions: Service Date/Time: Thursday, July 28, 2016 09:57 - CONCLUSION: 1. No evidence for hemodynamically significant stenosis. Ryan Cooper MD Abdomen X-Ray 07/27/16 0000 Signed Impressions: Service Date/Time: Thursday, July 28, 2016 00:03 - CONCLUSION: No acute abnormalities. Copious stool in the rectum. Silas Jorge MD Objective Remarks GENERAL: This is a well-nourished, well-developed patient in [facility]. SKIN: Generalized thinning of skin. HEAD: Atraumatic. Normocephalic. No temporal or scalp tenderness. EYES: Extraocular motions intact. No scleral icterus. No injection or drainage. CARDIOVASCULAR: Regular rate and rhythm, no murmur appreciated. RESPIRATORY: Clear to auscultation. Breath sounds equal bilaterally. No wheezes , rales, or rhonchi. GASTROINTESTINAL: Abdomen soft, non-tender, nondistended. No hepato-splenomegaly , or palpable masses. No guarding. MUSCULOSKELETAL: Extremities without clubbing, cyanosis, or edema. No joint tenderness, effusion, or edema noted. No calf tenderness. Negative Homans sign bilaterally. NEUROLOGICAL: Slightly lethargic. Motor and sensory grossly within normal limits. Five out of 5 muscle strength in all muscle groups. Normal speech. PSYCH: Slightly flattened affect. Procedures None. Medications and IVs Current Medications Medications (Trade) Dose Ordered Sig/Neena Route Start Time Stop Time Status Last Admin (NS Flush) 2 ml UNSCH PRN IV FLUSH 07/27/16 22:45 (NS Flush) 2 ml BID IV FLUSH 07/28/16 09:00 07/31/16 08:38 (Narcan Inj) 0.4 mg UNSCH PRN IV 07/27/16 22:45 (Eliquis) 5 mg BID PO 07/28/16 09:00 07/31/16 08:36 (Ecotrin Ec) 81 mg DAILY PO 07/28/16 09:00 07/31/16 08:36 (Synthroid) 50 mcg DAILY@06 PO 07/28/16 06:00 07/31/16 06:12 (Mag-Ox) 400 mg DAILY PO 07/28/16 09:00 07/31/16 08:34 (Pravachol) 40 mg HS PO 07/28/16 21:00 07/30/16 20:55 (Zoloft) 100 mg DAILY PO 07/28/16 09:00 07/31/16 08:35 (D50w (Vial) Inj) 25 ml UNSCH PRN IV PUSH 07/27/16 23:00 (Glucagon Inj) 1 mg UNSCH PRN OTHER 07/27/16 23:00 (Prinivil) 20 mg BID PO 07/28/16 09:00 07/31/16 08:33 (Pill Splitter) 1 ea UNSCH PRN OTHER 07/27/16 23:00 (Cipro) 250 mg BID PO 07/28/16 09:00 08/05/16 08:59 07/31/16 08:38 (Apresoline Inj) 10 mg Q4HR PRN IV PUSH 07/28/16 13:00 (Norvasc) 10 mg DAILY PO 07/30/16 09:00 07/31/16 08:34 (Colace) 100 mg BID PO 07/29/16 21:00 07/31/16 08:36 (Senokot) 17.2 mg DAILY PO 07/29/16 12:30 07/31/16 08:37 (Miralax) 17 gm DAILY PO 07/30/16 10:00 07/31/16 08:32 (Duoneb Neb) 1 ampule ONCE ONCE NEB 07/31/16 09:00 07/31/16 09:01 A/P Problem List: (1) Near syncope ICD Code: R55 Status: Acute Assessment and Plan This is an 80 year old female patient with a past medical history which includes : dementia, atrial fibrillation status post ablation, arthritis, uterine cancer , hypertension, chronic back pain, diabetes mellitus and 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 Near syncope with chest tightness and shortness of breath May be s/t hypertension or hypoglycemia. Carotid US negative. Echo with normal EF. Trops flat. Repeat CXR, ABG unremarkable. TSH, vitamin B12 within normal limits. - continuous telemetry. - PT. - treat hypertension and monitor glucose levels. - oxygen and nebs as needed. - blood cultures x 2. Leukocytosis Persistent. Possibly s/t UTI, culture from 07/24/2016 positive for Escherichia coli sensitive to Cipro. - check blood cultures. - continue Cipro. - follow CBC. Diabetes mellitus Blood glucose upon arrival 78 after near syncopal episode. Recent hemoglobin A1c 07/25/2016 5.8%. Hypoglycemia likely cause of pt's near syncopal episodes. Glucose well controlled 07/31. - Will hold oral diabetic medication. - Continue Accu-Cheks before meals at bedtime Hypertensive urgency SBP has been over 200 at times. Blood pressure now within normal limits. - continue lisinopril 20 mg BID. D/c HCTZ. - increased amlodipine to 10 mg daily. - Hydralazine as needed. Constipation KUB with stool in colon. The pt has had a bowel movement. - bowel regimen. Added Miralax. History of atrial fibrillation Status post ablation, currently in sinus rhythm. - continue home Eliquis. - telemetry. DVT prophylaxis patient is on Eliquis. Discharge Planning Anticipate discharge home with home health tomorrow. John Chirinos DO Jul 31, 2016 09:01
--- NOTE | 2016-07-31 15:55 | HHI.DCPOC ---
Discharge Care Plan Diagnosis: (1) Symptomatic bradycardia (2) Near syncope (3) Diabetes mellitus (4) Leukocytosis Goals to Promote Your Health * To prevent worsening of your condition and complications * To maintain your health at the optimal level Directions to Meet Your Goals Take your medications as prescribed Follow your dietary instruction Follow activity as directed Keep your appointments as scheduled Take your immunizations and boosters as scheduled If your symptoms worsen call your PCP, if no PCP go to Urgent Care Center or Emergency Room Smoking is Dangerous to Your Health. Avoid second hand smoke Call the 24-hour hour crisis hotline for domestic abuse at John Chirinos DO Jul 31, 2016 15:54
--- NOTE | 2016-07-31 15:55 | HHI.FF ---
Face to Face Verification Diagnosis: (1) Symptomatic bradycardia (2) Leukocytosis (3) Diabetes mellitus (4) Near syncope Physical Therapy Order: Evaluate and Treat, Improve ambulation, Strength and gait training Occupational Therapy Order: Evaluate and Treat, Improve ADL, Gross motor coordination, Fine motor coordination Home Health Nursing Order: Medical education Signs/symptoms of disease process Diabetic education Medication education-adverse effect Nursing assessment with vital signs I have seen patient Annika Rosado on 07/31/16. My clinical findings support the need for the requested home health care services because: Patient has SOB Deconditioned w/ increased weakness Limited ability to care for self Impaired cognition/judgement High risk of falls I certify that my clinical findings support that this patient is homebound because: Impaired cognitive ability/safety Unsteady gait/balance Unsafe to leave home unassisted Need for psychosocial assistance John Chirinos DO Jul 31, 2016 15:55
[2016-07-31] MEDS: PRAVASTATIN SOD 40 MG TAB PO SCH (20:03)
[2016-08-01 05:26] VITALS: BP 130/66; PULSE 98; RESP 20; TEMP 97.6; O2SAT 93
[2016-08-01 05:35] VITALS: PULSE 100
[2016-08-01] MEDS: LEVOTHYROXINE SODIUM 50 MCG TAB PO SCH (06:56)
[2016-08-01] MEDS: INSULIN ASPART SUPPLEMENTAL SCALE SQ SCH (06:57)
[2016-08-01 08:00] VITALS: BP 137/67; PULSE 135; PULSE 71; RESP 20; TEMP 98; O2SAT 94
[2016-08-01] MEDS: DOCUSATE SODIUM 100 MG CAP PO SCH (08:11)
[2016-08-01] MEDS: MAGNESIUM OXIDE 400 MG TAB PO SCH (08:11)
[2016-08-01] MEDS: LISINOPRIL 20 MG TAB PO SCH (08:11)
[2016-08-01] MEDS: SERTRALINE HCL 100 MG TAB PO SCH (08:11)
[2016-08-01] MEDS: APIXABAN 5 MG TABLET PO SCH (08:11)
[2016-08-01] MEDS: ASPIRIN EC 81 MG TABEC PO SCH (08:11)
[2016-08-01] MEDS: CIPROFLOXACIN 250 MG TAB PO SCH (08:11)
[2016-08-01] MEDS: POLYETHYLENE GLYCOL 17 GM PKG PO SCH (08:12)
[2016-08-01] MEDS: SENNOSIDES 8.6 MG TAB PO SCH (08:12)
[2016-08-01] MEDS: SODIUM CHLORIDE 0.9% FLUSH 10 ML FLUSH IV FLUSH SCH (08:12)
[2016-08-01] MEDS ORDERED: SENN8.6T15 PO (08:53)
[2016-08-01] MEDS ORDERED: LISI-515 PO (08:53)
[2016-08-01] MEDS ORDERED: DOCU1CAP39 PO (08:53)
[2016-08-01] MEDS ORDERED: AMLO10 PO (08:53)
--- NOTE | 2016-08-01 09:03 | HHI.DS ---
Discharge Summary Admission Date Jul 27, 2016 at 22:42 Discharge Date: Aug 01, 2016 Admitting Diagnosis symptomatically bradycardia, near syncope (1) Near syncope ICD Code: R55 Diagnosis: Principal (2) Leukocytosis ICD Code: D72.829 (3) Diabetes mellitus ICD Code: E11.9 Procedures None. 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 Patient was DC from hospital 07/26/16. Patient's daughter checks on her twice a day this gives her her medications. Per patient's daughter 07/27/16 evening patient was very unsteady and had a near syncopal episode. Patients daughter was with her patient, "nearly passed out." The daughter was able to catch her. There was no loss of consciousness or actual fall. Blood glucose at that time was 90. Patient's daughter also reports that patient seems to be breathing more deeply than usual. Patient reports feeling very dizzy prior to near syncope episode. Patient reports a SOB nausea and chest tightness prior to near syncopal episode. Chest tightness and nausea have since spontaneously resolved. Reports constipation no BM x 3 days Patient has lost 65 pounds over the past 1 year. There is no reported fevers, chills, cough or congestion. CBC/BMP: 07/30/16 0440 07/30/16 1014 Significant Findings Laboratory Tests Test 07/30/16 07/30/16 07/30/16 04:40 10:14 11:41 White Blood Count 14.5 TH/MM3 (4.0-11.0) Red Blood Count 5.42 MIL/MM3 (4.00-5.30) Mean Corpuscular Volume 79.2 FL (80.0-100.0) Mean Corpuscular Hemoglobin 25.4 PG (27.0-34.0) Red Cell Distribution Width 17.3 % (11.6-17.2) Neutrophils (%) (Auto) 70.1 % (16.0-70.0) Eosinophils (%) (Auto) 4.8 % (0.0-4.0) Neutrophils # (Auto) 10.2 TH/MM3 (1.8-7.7) Monocytes # (Auto) 1.1 TH/MM3 (0-0.9) Eosinophils # (Auto) 0.7 TH/MM3 (0-0.4) Chloride Level 97 MEQ/L (98-107) Estimat Glomerular Filtration 62 ML/MIN (>89) Rate Random Glucose 170 MG/DL (74-106) Aspartate Amino Transf 12 U/L (15-37) (AST/SGOT) Albumin 3.0 GM/DL (3.4-5.0) Vitamin B12 Level 1032 PG/ML (193-986) Blood Gas HCO3 29 mmol/L (22-26) Blood Gas Base Excess 4.9 mmol/L (-2-2) Arterial Blood pH 7.47 (7.380-7.420) Imaging Last Impressions Chest X-Ray 07/28/16 0000 Signed Impressions: Service Date/Time: Thursday, July 28, 2016 14:47 - CONCLUSION: No acute disease. Ryan Cooper MD Carotid Artery Ultrasound 07/28/16 0000 Signed Impressions: Service Date/Time: Thursday, July 28, 2016 09:57 - CONCLUSION: 1. No evidence for hemodynamically significant stenosis. Ryan Cooper MD Abdomen X-Ray 07/27/16 0000 Signed Impressions: Service Date/Time: Thursday, July 28, 2016 00:03 - CONCLUSION: No acute abnormalities. Copious stool in the rectum. Silas Jorge MD PE at Discharge GENERAL: This is a well-nourished, well-developed patient in [facility]. SKIN: Generalized thinning of skin. HEAD: Atraumatic. Normocephalic. No temporal or scalp tenderness. EYES: Extraocular motions intact. No scleral icterus. No injection or drainage. CARDIOVASCULAR: Regular rate and rhythm, no murmur appreciated. RESPIRATORY: Clear to auscultation. Breath sounds equal bilaterally. No wheezes , rales, or rhonchi. GASTROINTESTINAL: Abdomen soft, non-tender, nondistended. No hepato-splenomegaly , or palpable masses. No guarding. MUSCULOSKELETAL: Extremities without clubbing, cyanosis, or edema. No joint tenderness, effusion, or edema noted. No calf tenderness. Negative Homans sign bilaterally. NEUROLOGICAL: Slightly lethargic. Motor and sensory grossly within normal limits. Five out of 5 muscle strength in all muscle groups. Normal speech. PSYCH: Slightly flattened affect. Pt update on day of discharge The patient was resting comfortably in bed. She had no acute complaints. She was agreeable with going home today. Family was at the bedside. The patient did tolerate her breakfast. Discussed with nursing and case management. Hospital Course Near syncope Carotid US negative. Echo with normal EF. Trops flat. Repeat CXR, ABG unremarkable. TSH, vitamin B12 within normal limits. She was monitored on telemetry. Her diabetic medications were held and her blood sugars remained in an acceptable range so she will not resume them upon discharge. She worked with PT and OT. She will be discharged with home health nursing, PT and OT. She will follow up with her PCP. Leukocytosis Urine culture from 07/24/2016 positive for Escherichia coli sensitive to Cipro. She completed a course of Cipro. Blood cultures with NGTD. She will repeat a CBC as an outpt and will follow up with her PCP. Diabetes mellitus Blood glucose upon arrival 78 after near syncopal episode. Recent hemoglobin A1c 07/25/2016 5.8%. Glucose was well controlled off of all diabetic medications. Will hold diabetic medications upon discharge. The pt will continue to monitor her glucose levels at home and if elevated will resume metformin. The pt will follow up with her PCP. Hypertensive urgency SBP has been over 200 at times. Blood pressure now within normal limits. She will continue lisinopril 20 mg BID. We discontinued HCTZ. We started and increased amlodipine to 10 mg daily. She will follow up with her PCP. Constipation KUB with copious stool in the rectum. The pt will continue a bowel regimen. Pt Condition on Discharge: Stable Discharge Disposition: Disch w/ Home Health Serv Discharge Time: > 30 minutes Discharge Instructions DIET: Follow Instructions for: Diabetic Diet Activities you can perform: Weight Bearing as Nabil Follow up Referrals: PCP Follow-up - 1 Week New Orders: CBC WITH DIFF - 3-5 Days New Medications: Amlodipine (Norvasc) 10 Mg Tab 10 MG PO DAILY Blood Pressure Management #30 TAB Docusate Sodium (Dok) 100 Mg Cap 100 MG PO BID Constipation #60 CAP Lisinopril (Lisinopril) 20 Mg Tab 20 MG PO BID Blood Pressure Management #60 TAB Sennosides (Senna Lax) 8.6 Mg Tab 17.2 MG PO DAILY Constipation #60 TAB Continued Medications: Apixaban (Eliquis) 5 Mg Tab 5 MG PO BID Blood Clot Prevention #60 Ref 0 TAB Aspirin (Aspirin) 81 Mg Tabdr 81 MG PO DAILY TAB Cholecalciferol (Vitamin D3) 5,000 Unit Cap 5000 UNITS PO DAILY Nutritional Supplement #1 Ref 0 BOTTLE Cyanocobalamin (Vitamin B12 Tr) 1,000 Mcg Tab 1000 MCG SL HS #1 BOTTLE Levothyroxine (Synthroid) 50 Mcg Tab 50 MCG PO DAILY Thyroid #30 Ref 0 TAB Magnesium Oxide (Magox) 400 Mg Tab 400 MG PO DAILY Nutritional Supplement Ref 0 TAB Pravastatin (Pravastatin) 40 Mg Tab 40 MG PO HS Cholesterol Management #30 Ref 0 TAB Sertraline (Sertraline) 100 Mg Tab 100 MG PO DAILY #30 Ref 0 TAB Discontinued Medications: Ciprofloxacin (Cipro) 250 Mg Tab 250 MG PO BID Infection Days 8 Ref 0 TAB Dulaglutide Inj (Trulicity Inj) Unknown Strength Pen Unknown Dose SQ Q7D Blood Sugar Management #4 Ref 0 PEN Glipizide (Glipizide) 5 Mg Tab 5 MG PO BIDAC Take 30 minutes before a meal Blood Sugar Management #60 Ref 0 TAB Lisinopril-Hctz (Lisinopril-Hctz) 20-12.5 Mg Tab 1 TAB PO BID Blood Pressure Management #30 Ref 0 TAB Metformin (Metformin) 1,000 Mg Tab 1000 MG PO HS With a meal Blood Sugar Management #30 Ref 0 TAB John Chirinos DO Aug 01, 2016 09:03
[2016-08-01 10:58] LABS: HEMATOCRIT 42.3 % (35.0-46.0); MEAN CELL VOLUME 78.7 FL (80.0-100.0); MEAN CORPUSCULAR HEMOGLOBIN 25.2 PG (27.0-34.0); MEAN CORPUSCULAR HGB CONC 32.1 % (32.0-36.0); PLATELET COUNT 243 TH/MM3 (150-450); RED BLOOD COUNT 5.37 MIL/MM3 (4.00-5.30); RED CELL DISTRIBUTION WIDTH 17.3 % (11.6-17.2); REVIEW FLAG FINAL; WHITE BLOOD COUNT 13.9 TH/MM3 (4.0-11.0)
[2016-08-01 11:22] LABS: BICARBONATE 29.2 MEQ/L (21.0-32.0); MAGNESIUM 2.1 MG/DL (1.5-2.5); POTASSIUM 3.8 MEQ/L (3.5-5.1)
== END 2016-08-01 10:53 | disposition home or self-care (01) ==
LOC: NEPE 17:39 → NEDA 22:42 → NEPFCDU 07-28 00:39 → N04A 07-28 14:05
PROVIDERS: ADMIT Hospitalist; ATTEND Hospitalist
DX: R55 Syncope and collapse (principal); R07.89 Other chest pain; R06.02 Shortness of breath; E11.649 Type 2 diabetes mellitus with hypoglycemia without coma; D72.829 Elevated white blood cell count, unspecified; I10 Essential (primary) hypertension; K59.00 Constipation, unspecified; M54.5 Low back pain; G89.29 Other chronic pain; F03.90 Unspecified dementia, unspecified severity, without behavioral disturbance, psychotic disturbance, mood disturbance, and anxiety; M19.90 Unspecified osteoarthritis, unspecified site; I48.91 Unspecified atrial fibrillation; R14.0 Abdominal distension (gaseous); E07.9 Disorder of thyroid, unspecified; I16.0 Hypertensive urgency; Z79.82 Long term (current) use of aspirin; Z79.84 Long term (current) use of oral hypoglycemic drugs; Z79.01 Long term (current) use of anticoagulants; Z86.73 Personal history of transient ischemic attack (TIA), and cerebral infarction without residual deficits; Z85.42 Personal history of malignant neoplasm of other parts of uterus
CPT/HCPCS: 36600; 71010; 71020; 74000; 80048; 80053; 81001; 82550; 82607; 82805; 82948; 83735; 83880; 84443; 84484; 85025; 85027; 85610; 85730; 87040; 87086; 93005; 93306; 93880; 94150; 97162; 97167; 97530; 99285; G0378; J1815